=== PATIENT | male | born 1945 | race Caucasian/White ===

== ENCOUNTER 2020-05-06 12:32 | Observation (INO) | payer MEDICARE, OTHER ==
[~2020-05-06 12:32] MED LIST: Lactated Ringers 1,000 ML IV SCH; Sodium Chloride 0.9% 10 ML SDV IV PRN; Sodium Chloride 0.9% 10 ML Syringe FLUSH PRN; Sodium Chloride 0.9% 2.5 ML Syringe FLUSH PRN; ceFAZolin 2 GM in Premix Bag 1 BAG IV ONE
[2020-05-06] MEDS ORDERED: Albuterol/Ipratropium 3.0-0.5 MG/3 ML Neb Soln NEB ONE (12:53)
--- NOTE | 2020-05-06 12:53 | PCM.PREANE ---
Preanesthetic Assessment - Anesthesia/Transfusion/Family Hx Anesthesia History: No Prior Anesthesia Family History of Anesthesia Reaction: No Transfusion History: No Prior Transfusion(s) Intubation History: Unknown - Review of Systems General: No Symptoms Pulmonary: No Symptoms, Wheezing Cardiovascular: No Symptoms Gastrointestinal: No Symptoms Neurological: No Symptoms Other: Reports: None - Physical Assessment Height: 5 ft 11 in Weight: 117.934 kg ASA Class: 3 Mental Status: Alert & Oriented x3 Airway Class: Mallampati = 2 Dentition: Reports: Dentures (upper) Thyro-Mental Finger Breadths: 3 Mouth Opening Finger Breadths: 3 ROM/Head Extension: Limited/Partial Lungs: Normal Respiratory Effort, Wheezing Cardiovascular: Regular Rate, Regular Rhythm - Lab Values: Laboratory Last Values SARS-CoV-2 RNA (AMY) NEGATIVE (NEGATIVE) 05/06/20 10:30 - Allergies Allergies/Adverse Reactions: Allergies Allergy/AdvReac Type Severity Reaction Status Date / Time No Known Allergies Allergy Verified 05/06/20 08:11 - Blood Blood Available: No - Anesthesia Plan Pre-Op Medication Ordered: None - Acknowledgements Anesthesia Type Planned: General Anesthesia Pt an Appropriate Candidate for the Planned Anesthesia: Yes Alternatives and Risks of Anesthesia Discussed w Pt/Guardian: Yes Pt/Guardian Understands and Agrees with Anesthesia Plan: Yes PreAnesthesia Questionnaire HEENT History: Reports: Other (See Below) Other HEENT History: wears glasses, top denture Cardiovascular History: Reports: Aneurysm, High Cholesterol, Hypertension Other Cardiovascular History: AAA, gets checked every 6 months, last time 6 months ago 4.2 cm Respiratory History: Reports: 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 He can walk 2 flights of stairs or two blocks with some SOB) Gastrointestinal History: Reports: None Genitourinary History: Reports: BPH, Renal Calculus Other Genitourinary History: presently has kidney stone Musculoskeletal History: Reports: Arthritis Neurological History: Reports: None Psychiatric History: Reports: None Endocrine/Metabolic History: Reports: Obesity/BMI 30+ (BMI 36.3) Hematologic History: Reports: None Immunologic History: Reports: None Oncologic (Cancer) History: Reports: None Dermatologic History: Reports: None - Past Surgical History Head Surgeries/Procedures: Reports: None HEENT Surgical History: Reports: Cataract Surgery Cardiovascular Surgical History: Reports: None Respiratory Surgical History: Reports: None GI Surgical History: Reports: None Male Surgical History: Reports: None Endocrine Surgical History: Reports: None Neurological Surgical History: Reports: None Musculoskeletal Surgical History: Reports: None Oncologic Surgical History: Reports: None Dermatological Surgical History: Reports: Skin Biopsy - SUBSTANCE USE Tobacco Use Status *Q: Current Every Day Tobacco User (1 ppd) Tobacco Use Within Last Twelve Months: Cigarettes Recreational Drug Use History: No - HOME MEDS Home Medications: Home Meds Albuterol Sulfate [Albuterol Sulfate HFA] 2 puff INH Q4H PRN 05/06/20 [History] Fluticasone Propion/Salmeterol [Advair 250-50 Diskus] 1 inhalation INH BID 05/06/20 [History] Tiotropium [Spiriva HandiHaler] 1 cap INH DAILY 05/06/20 [History] atorvaSTATin Calcium [Atorvastatin Calcium] 20 mg PO DAILY 05/06/20 [History] lisinopriL [Lisinopril] 10 mg PO DAILY 05/06/20 [History] - CURRENT (IN HOUSE) MEDS Current Meds: Current Medications Lactated Ringer's (Ringers, Lactated) 1,000 mls @ 100 mls/hr IV ASDIRECTED KJ Sodium Chloride (Saline Flush) 10 ml FLUSH ASDIRECTED PRN PRN Reason: Keep Vein Open Sodium Chloride (Saline Flush) 2.5 ml FLUSH ASDIRECTED PRN PRN Reason: Keep Vein Open Sodium Chloride (Normal Saline) 10 ml IV ASDIRECTED PRN PRN Reason: IV Use Discontinued Medications Cefazolin Sodium/Dextrose 2 gm (/ Premix) 50 mls @ 100 mls/hr IV ONCALL ONE Stop: 05/06/20 09:10
[2020-05-06] MEDS ORDERED: Albuterol/Ipratropium 3.0-0.5 MG/3 ML Neb Soln ONE (13:00)
[2020-05-06] MEDS ORDERED: fentaNYL 100 MCG/2 ML SDV ONE ×2 (13:45→14:18)
[2020-05-06] MEDS ORDERED: Propofol 200 MG/20 ML SDV ONE ×4 (13:45→14:35)
[2020-05-06] MEDS ORDERED: Midazolam 1 MG/ML 2 ML SDV ONE (13:46)
[2020-05-06] MEDS ORDERED: Ondansetron 4 MG/2 ML SDV ONE (13:46)
[2020-05-06] MEDS ORDERED: Iopamidol 408 MG/ML 20 ML SDV ONE (13:48)
[2020-05-06] MEDS ORDERED: Sodium Chloride 0.9% 20 ML ONE (13:55)
[2020-05-06] MEDS ORDERED: ceFAZolin 1 GM Vial ONE (13:55)
[2020-05-06] MEDS ORDERED: Glycopyrrolate 0.2 MG/ML SDV ONE (14:16)
[2020-05-06] MEDS ORDERED: Ketorolac 30 MG/ML SDV ONE (14:52)
[2020-05-06] MEDS ORDERED: Albuterol 8 GM Inhaler INH PRN (15:10)
--- NOTE | 2020-05-06 16:00 | PCM.POSTAN ---
POST ANESTHESIA ASSESSMENT - MENTAL STATUS Mental Status: Alert - VITAL SIGNS Vital Signs: Last Vital Signs Temp 36.9 C 05/06/20 15:03 Pulse 92 05/06/20 15:29 Resp 21 H 05/06/20 15:29 BP 135/66 05/06/20 15:29 Pulse Ox 92 L 05/06/20 15:29 - RESPIRATORY Respiratory Status: Respiratory Rate WNL - CARDIOVASCULAR CV Status: Pulse Rate WNL - GASTROINTESTINAL GI Status: No Symptoms - POST OP HYDRATION Hydration Status: Adequate & Stable
--- NOTE | 2020-05-06 16:05 | OR ---
SURGEON: Serina Singh M.D. DATE OF PROCEDURE: 05/06/2020 PREOPERATIVE DIAGNOSIS: A 7 to 8 mm left upper ureteral stone. POSTOPERATIVE DIAGNOSIS: A 7 to 8 mm left upper ureteral stone. OPERATION: Cystoscopy; attempted double-J stent placement, unsuccessful. DESCRIPTION OF PROCEDURE: The patient was given adequate sedation. He was placed in dorsal lithotomy position, prepped and draped in sterile drapes. The urethral meatus had to be dilated to allow the 25-Bulgarian scope in, however, that met resistance and was replaced by the 22-Bulgarian. I was able to get into the bladder, but it appeared that a small false passage was created in the distal penile urethra. However, that was avoided, and I am now in the bladder. There was a prominent median lobe and could not use the cystoscope to get the guidewire in. So I ended up having to replace that with a rigid ureteroscope through which I was able to initially try the regular guidewire, which would not go up beyond the first 2 inches. So I put the Glidewire in and that went all the way up into the renal pelvis. An attempt was made to put the stent over the Glidewire without having cystoscope in, but that went in the left lower ureter and just stopped. Anymore push would result in having the Glidewire come back, so that unfortunately did not work. So the double-J stent was pulled out. The Glidewire was still in place, attempted putting a 22 cystoscope sheath over that, that also met resistance because of enlarged prostate, and in order to avoid further damage to the urethra, I stopped and put a 20-Bulgarian Reilly catheter in, which went in easy. The urine coming back was clear. There was some urethral bleeding, but that was stopped, and we would have to manage his pain until we can do the lithotripsy, the shock wave lithotripsy that is, since the stone is clearly visible on the fluoro. With that done, the procedure was terminated. The patient was moved to recovery room in stable condition. He will be sent home and will be instructed to leave the catheter in for the next 2 days. Actually, we will take it out Saturday morning, and I will see him again this coming for ESWL. He will be sent home on antibiotics and Flomax and pain medicine. JULIOCESAR / URMILA /[id number]
--- NOTE | 2020-05-06 19:15 | PCM.HP.2 ---
<Kemar Man M - Last Filed: 05/06/20 20:48> H&P History of Present Illness - General Date of Service: 05/06/20 Admit Problem/Dx: Admission Diagnosis/Problem Admission Diagnosis/Problem Kidney stone Source of Information: Patient History Limitations: Reports: No Limitations - History of Present Illness Initial Comments - Free Text/Narative: 74-year-old male admitted to med/surg after having urological procedure done earlier today. Patient has a PMH of COPD, HTN, HLD, BPH and renal calculus. Patient was taken to the OR to have cystoscopy and stent placement for left ureter partial stone obstruction. Per urologist, stent could not be placed. After the procedure, patient was unable to be weaned off of oxygen. He was then admitted to the general medical floor for further evaluation and treatment. Patient does not use any home oxygen at baseline. He is a current smoker of 1 ppd. At bedside today, patient denied having any pain, fevers, chills, sore throat, cough, chest pain, nausea, vomiting, abdominal pain, diarrhea, blood in stool, blood in urine, numbness or tingling in extremities. penis Pain Score (Numeric/FACES): 5 - Related Data Allergies/Adverse Reactions: Allergies Allergy/AdvReac Type Severity Reaction Status Date / Time No Known Allergies Allergy Verified 05/06/20 13:11 Home Medications: Home Meds Albuterol Sulfate [Albuterol Sulfate HFA] 2 puff INH Q4H PRN 05/06/20 [History] Fluticasone Propion/Salmeterol [Advair 250-50 Diskus] 1 inhalation INH BID 05/06/20 [History] Tiotropium [Spiriva HandiHaler] 1 cap INH DAILY 05/06/20 [History] atorvaSTATin Calcium [Atorvastatin Calcium] 20 mg PO DAILY 05/06/20 [History] lisinopriL [Lisinopril] 10 mg PO DAILY 05/06/20 [History] Past Medical History HEENT History: Reports: Other (See Below) Other HEENT History: wears glasses, top denture Cardiovascular History: Reports: Aneurysm, High Cholesterol, Hypertension Other Cardiovascular History: AAA, gets checked every 6 months, last time 6 months ago 4.2 cm Respiratory History: Reports: COPD Gastrointestinal History: Reports: None Genitourinary History: Reports: BPH, Renal Calculus Other Genitourinary History: presently has kidney stone Musculoskeletal History: Reports: Arthritis Neurological History: Reports: None Psychiatric History: Reports: None Endocrine/Metabolic History: Reports: Obesity/BMI 30+ Hematologic History: Reports: None Immunologic History: Reports: None Oncologic (Cancer) History: Reports: None Dermatologic History: Reports: None - Past Surgical History Head Surgeries/Procedures: Reports: None HEENT Surgical History: Reports: Cataract Surgery, Tonsillectomy Cardiovascular Surgical History: Reports: None Respiratory Surgical History: Reports: None GI Surgical History: Reports: None Male Surgical History: Reports: None Endocrine Surgical History: Reports: None Neurological Surgical History: Reports: None Musculoskeletal Surgical History: Reports: None Oncologic Surgical History: Reports: None Dermatological Surgical History: Reports: Skin Biopsy Social & Family History - Family History Family Medical History: No Pertinent Family History - Tobacco Use Tobacco Use Status *Q: Current Every Day Tobacco User Years of Tobacco use: 55 Packs/Tins Daily: 1 - Caffeine Use Caffeine Use: Reports: Coffee - Recreational Drug Use Recreational Drug Use: No Drug Use in Last 12 Months: No H&P Review of Systems - Review of Systems: Review Of Systems: Comprehensive ROS is negative, except as noted in HPI. Exam - Exam Exam: See Below - Vital Signs Vital Signs: Last Vital Signs Temp 37.1 C 05/06/20 17:15 Pulse 92 05/06/20 17:15 Resp 18 05/06/20 17:15 BP 151/71 H 05/06/20 17:15 Pulse Ox 96 05/06/20 17:15 Weight: 128.684 kg - Exam General: Alert, Oriented, Cooperative, Other (NAD) HEENT: Conjunctiva Clear, EOMI, Hearing Intact, Pupils Equal, Pupils Reactive Neck: Supple, Trachea Midline Lungs: Normal Respiratory Effort, Other (mild wheezes in RLL.) Cardiovascular: Regular Rate, Regular Rhythm GI/Abdominal Exam: Normal Bowel Sounds, Soft, Non-Tender, No Distention Extremities: Normal Inspection, No Pedal Edema Peripheral Pulses: 2+: Radial (L), Radial (R) Skin: Warm, Dry, Intact Neurological: Cranial Nerves Intact, Strength Equal Bilateral, Normal Speech, Normal Tone Neuro Extensive - Mental Status: Alert, Oriented x3, Normal Mood/Affect Psychiatric: Alert, Normal Affect, Normal Mood - Patient Data Lab Results Last 24 hrs: Laboratory Results - last 24 hr 05/06/20 Range/Units 10:30 SARS-CoV-2 RNA (AMY) NEGATIVE (NEGATIVE) Sepsis Event Note - Evaluation Sepsis Screening Result: No Definite Risk - Focused Exam Vital Signs: Vital Signs Temp Pulse Resp BP Pulse Ox 05/06/20 17:15 37.1 C 92 18 151/71 H 96 05/06/20 16:30 91 20 140/63 93 L 05/06/20 16:10 100 20 81 L 05/06/20 15:50 90 18 144/85 H 90 L 05/06/20 15:35 36.4 C 18 141/65 H 89 L 05/06/20 15:29 92 21 H 135/66 92 L 05/06/20 15:25 97 1 L 134/72 93 L 05/06/20 15:20 97 18 127/64 89 L 05/06/20 15:15 95 17 109/49 L 96 05/06/20 15:09 100 16 140/75 96 05/06/20 15:03 36.9 C 102 H 13 137/58 L 98 05/06/20 13:13 36.7 C 74 18 158/69 H 95 Problem List Initiated/Reviewed/Updated: Yes Orders Last 24hrs: Active Orders 24 hr Category Date Time Status Admission Status [Patient Status] [ADT] Routine ADT 05/06/20 17:11 Active Patient Status [ADT] Routine ADT 05/06/20 08:42 Active Peripheral IV Care [RC] . DIRECTED Care 05/06/20 08:46 Active RT Aerosol Therapy [RC] ASDIRECTED Care 05/06/20 12:54 Active RT Post Treatment Assessment [RC] Click to Edit Care 05/06/20 15:10 Active RT Pre-Treatment Assessment [RC] Click to Edit Care 05/06/20 15:10 Active Ready for Discharge [RC] PER UNIT ROUTINE Care 05/06/20 15:12 Active Up ad Zora [RC] ASDIRECTED Care 05/06/20 08:46 Active Clear Liquid Diet [DIET] Diet 05/06/20 Lunch Active Fluoro Up To 1Hr [CR] Routine Exams 05/06/20 14:49 Taken Albuterol [Ventolin HFA] Med 05/06/20 15:10 Active 0 gm INH Q4H PRN Fluticasone/Salmeterol [Advair Diskus 250-50] Med 05/06/20 21:00 Active 1 puff INH BID Lactated Ringers [Ringers, Lactated] 1,000 ml Med 05/06/20 08:45 Active IV ASDIRECTED Sodium Chloride 0.9% [Normal Saline] Med 05/06/20 08:41 Active 10 ml IV ASDIRECTED PRN Sodium Chloride 0.9% [Saline Flush] Med 05/06/20 08:41 Active 10 ml FLUSH ASDIRECTED PRN Sodium Chloride 0.9% [Saline Flush] Med 05/06/20 08:41 Active 2.5 ml FLUSH ASDIRECTED PRN Tiotropium [Spiriva HandiHaler] Med 05/07/20 09:00 Active 18 mcg INH DAILY atorvaSTATin [Lipitor] Med 05/06/20 21:00 Active 20 mg PO BEDTIME lisinopriL [Prinivil] Med 05/07/20 09:00 Active 10 mg PO DAILY Peripheral IV Insertion Adult [OM.PC] Routine Oth 05/06/20 08:46 Ordered Resuscitation Status Routine Resus Stat 05/06/20 08:41 Ordered Medication Orders Albuterol (Ventolin Hfa) 0 gm INH Q4H PRN PRN Reason: Wheezing Atorvastatin Calcium (Lipitor) 20 mg PO BEDTIME KJ Lactated Ringer's (Ringers, Lactated) 1,000 mls @ 100 mls/hr IV ASDIRECTED KJ Last Admin: 05/06/20 13:11 Dose: 100 mls/hr Documented by: FENSGLO Lisinopril (Prinivil) 10 mg PO DAILY KJ Fluticasone/Salmeterol (Advair Diskus 250-50) 1 puff INH BID KJ Sodium Chloride (Saline Flush) 10 ml FLUSH ASDIRECTED PRN PRN Reason: Keep Vein Open Sodium Chloride (Saline Flush) 2.5 ml FLUSH ASDIRECTED PRN PRN Reason: Keep Vein Open Sodium Chloride (Normal Saline) 10 ml IV ASDIRECTED PRN PRN Reason: IV Use Tiotropium [place] (Spiriva Handihaler) 18 mcg INH DAILY KJ Assessment/Plan Comment:: Assessment and Plan: 1. Acute hypoxic respiratory failure post-operatively: - Admit to med/surg. Supplemental oxygen prn, Duonebs q4 KJ and IV solumedrol 40 mg BID. Encourage incentive spirometer use. Patient currently on 2 L NC. Will order CBC, CMP and CXR. 2. Left ureter partial stone obstruction: - Patient was taken to the OR today by urology but stent could not be placed. Per urology, planning for lithotripsy next week. 3. Past medical history of COPD, HTN, HLD and BPH: - Continue home medications. 4. DVT prophylaxis: - SCD's. 5. GI prophylaxis: - Pantoprazole 40 mg qd. <Joanna Thomas - Last Filed: 05/07/20 13:50> H&P History of Present Illness - General Admit Problem/Dx: Admission Diagnosis/Problem Admission Diagnosis/Problem Hypoxia - History of Present Illness Initial Comments - Free Text/Narative: I performed a history and physical exam of the patient and discussed management with resident. I have reviewed the residents note and agree with documented findings and plan unless otherwise specified in my note. Exam - Vital Signs Vital Signs: Last Vital Signs Temp 36.9 C 05/07/20 09:37 Pulse 87 05/07/20 09:37 Resp 16 05/07/20 09:37 BP 121/52 L 05/07/20 09:37 Pulse Ox 93 L 05/07/20 09:37 - Patient Data Lab Results Last 24 hrs: Laboratory Results - last 24 hr 05/06/20 05/06/20 05/07/20 Range/Units 22:19 22:19 06:35 WBC 11.45 H (4.0-11.0) K/uL RBC 3.91 L (4.50-5.90) M/uL Hgb 11.9 L (13.0-17.0) g/dL Hct 35.6 L (38.0-50.0) % MCV 91.0 (80.0-98.0) fL MCH 30.4 (27.0-32.0) pg MCHC 33.4 (31.0-37.0) g/dL RDW Std Deviation 45.6 (28.0-62.0) fl RDW Coeff of Wilfredo 14 (11.0-15.0) % Plt Count 244 (150-400) K/uL MPV 9.80 (7.40-12.00) fL Neut % (Auto) 82.8 H (48.0-80.0) % Lymph % (Auto) 11.0 L (16.0-40.0) % [place] % (Auto) 5.9 (0.0-15.0) % Eos % (Auto) 0.3 (0.0-7.0) % Baso % (Auto) 0.0 (0.0-1.5) % Neut # (Auto) 9.5 H (1.4-5.7) K/uL Lymph # (Auto) 1.3 (0.6-2.4) K/uL [place] # (Auto) 0.7 (0.0-0.8) K/uL Eos # (Auto) 0.0 (0.0-0.7) K/uL Baso # (Auto) 0.0 (0.0-0.1) K/uL Nucleated RBC % 0.0 /100WBC Nucleated RBCs # 0 K/uL Sodium 137 138 (136-148) mmol/L Potassium 4.2 4.4 (3.5-5.1) mmol/L Chloride 103 106 (98-107) mmol/L Carbon Dioxide 23.4 22.6 (21.0-32.0) mmol/L BUN 17 13 (7.0-18.0) mg/dL Creatinine 1.4 H 1.2 (0.8-1.3) mg/dL Est Cr Clr Drug Dosing 47.81 55.78 mL/min Estimated GFR (MDRD) 49.3 58.9 ml/min Glucose 128 H 162 H (74-106) mg/dL Calcium 8.1 L 8.3 L (8.5-10.1) mg/dL Phosphorus 3.6 (2.6-4.7) mg/dL Magnesium 1.8 (1.8-2.4) mg/dL 05/07/20 Range/Units 06:35 WBC 12.73 H (4.0-11.0) K/uL RBC 3.82 L (4.50-5.90) M/uL Hgb 11.7 L (13.0-17.0) g/dL Hct 34.5 L (38.0-50.0) % MCV 90.3 (80.0-98.0) fL MCH 30.6 (27.0-32.0) pg MCHC 33.9 (31.0-37.0) g/dL RDW Std Deviation 44.0 (28.0-62.0) fl RDW Coeff of Wilfredo 13 (11.0-15.0) % Plt Count 248 (150-400) K/uL MPV 9.80 (7.40-12.00) fL Neut % (Auto) 91.1 H (48.0-80.0) % Lymph % (Auto) 4.6 L (16.0-40.0) % [place] % (Auto) 4.2 (0.0-15.0) % Eos % (Auto) 0.0 (0.0-7.0) % Baso % (Auto) 0.1 (0.0-1.5) % Neut # (Auto) 11.6 H (1.4-5.7) K/uL Lymph # (Auto) 0.6 (0.6-2.4) K/uL [place] # (Auto) 0.5 (0.0-0.8) K/uL Eos # (Auto) 0.0 (0.0-0.7) K/uL Baso # (Auto) 0.0 (0.0-0.1) K/uL Nucleated RBC % 0.0 /100WBC Nucleated RBCs # 0 K/uL Sodium (136-148) mmol/L Potassium (3.5-5.1) mmol/L Chloride (98-107) mmol/L Carbon Dioxide (21.0-32.0) mmol/L BUN (7.0-18.0) mg/dL Creatinine (0.8-1.3) mg/dL Est Cr Clr Drug Dosing mL/min Estimated GFR (MDRD) ml/min Glucose (74-106) mg/dL Calcium (8.5-10.1) mg/dL Phosphorus (2.6-4.7) mg/dL Magnesium (1.8-2.4) mg/dL Result Diagrams: 05/07/20 06:35 05/07/20 06:35 Sepsis Event Note - Focused Exam Vital Signs: Vital Signs Temp Pulse Resp BP BP Pulse Ox Pulse Ox 05/07/20 09:37 36.9 C 87 16 121/52 L 93 L 05/07/20 08:28 131/62 05/07/20 04:00 36.8 C 84 16 134/59 L 90 L 05/07/20 03:19 96 Orders Last 24hrs: Active Orders 24 hr Category Date Time Status Admission Status [Patient Status] [ADT] Routine ADT 05/06/20 19:45 Active Ambulate [RC] ASDIRECTED Care 05/06/20 19:47 Active Antiembolic Devices [RC] PER UNIT ROUTINE Care 05/06/20 19:48 Active IS (RT) [RT Incentive Spirometry] [RC] Q2HWA Care 05/06/20 22:10 Active Oxygen Therapy [RC] PRN Care 05/06/20 19:43 Active Oxygen Therapy [RC] PRN Care 05/06/20 19:47 Active RT Aerosol Therapy [RC] ASDIRECTED Care 05/06/20 12:54 Active RT Aerosol Therapy [RC] ASDIRECTED Care 05/06/20 19:49 Active RT Aerosol Therapy [RC] ASDIRECTED Care 05/06/20 19:54 Active RT Incentive Spirometry [RC] ASDIRECTED Care 05/06/20 20:10 Active RT Post Treatment Assessment [RC] Click to Edit Care 05/06/20 15:10 Active RT Pre-Treatment Assessment [RC] Click to Edit Care 05/06/20 15:10 Active Ready for Discharge [RC] PER UNIT ROUTINE Care 05/06/20 15:12 Active VTE/DVT Education [RC] PER UNIT ROUTINE Care 05/06/20 19:43 Active VTE/DVT Education [RC] PER UNIT ROUTINE Care 05/06/20 19:47 Active Vital Signs [RC] Q4H Care 05/06/20 19:43 Active Vital Signs [RC] Q4H Care 05/06/20 19:47 Active Heart Healthy Diet [DIET] Diet 05/06/20 Dinner Active Fluoro Up To 1Hr [CR] Routine Exams 05/06/20 14:49 Taken BASIC METABOLIC PANEL,BMP [CHEM] AM Lab 05/08/20 05:11 Ordered CBC WITH AUTO DIFF [HEME] AM Lab 05/08/20 05:11 Ordered Acetaminophen [TylenoL] Med 05/06/20 19:47 Active 650 mg PO Q4H PRN Albuterol/Ipratropium [DuoNeb 3.0-0.5 MG/3 ML] Med 05/06/20 22:00 Active 3 ml NEB Q4HRRT Albuterol/Ipratropium [DuoNeb 3.0-0.5 MG/3 ML] Med 05/06/20 19:53 Active 3 ml NEB Q4HRRT PRN Docusate Sodium [Colace] Med 05/07/20 13:30 Active 100 mg PO BID Fluticasone/Salmeterol [Advair Diskus 250-50] Med 05/06/20 21:00 Active 1 puff INH BID Lactated Ringers [Ringers, Lactated] 1,000 ml Med 05/06/20 20:00 Active IV ASDIRECTED Levofloxacin/Dextrose 5%-Water [Levaquin in D5W 750 MG/ Med 05/06/20 23:30 Active 150 ML] 750 mg Premix Bag 1 bag IV Q48H Morphine Med 05/06/20 19:47 Active 2 mg IVPUSH Q4H PRN Ondansetron [Zofran] Med 05/06/20 19:47 Active 4 mg IVPUSH Q4H PRN Pantoprazole [ProTONIX] Med 05/07/20 09:00 Active 40 mg PO DAILY Tiotropium [Spiriva HandiHaler] Med 05/07/20 09:00 Active 18 mcg INH DAILY atorvaSTATin [Lipitor] Med 05/06/20 21:00 Active 20 mg PO BEDTIME lisinopriL [Prinivil] Med 05/07/20 09:00 Active 10 mg PO DAILY methylPREDNISolone Sod Succ [Solu-MEDROL] Med 05/06/20 20:00 Active 40 mg IVPUSH Q12H Sequential Compression Device [OM.PC] Per Unit Routine Oth 05/06/20 19:47 Ordered Medication Orders Acetaminophen (Tylenol) 650 mg PO Q4H PRN PRN Reason: Pain (Mild 1-3)/fever Albuterol/Ipratropium (Duoneb 3.0-0.5 Mg/3 Ml) 3 ml NEB Q4HRRT PRN PRN Reason: Shortness of Breath Albuterol/Ipratropium (Duoneb 3.0-0.5 Mg/3 Ml) 3 ml NEB Q4HRRT KJ Last Admin: 05/07/20 13:38 Dose: 3 ml Documented by: Admin: 05/07/20 10:41 Dose: 3 ml Documented by: Admin: 05/07/20 06:42 Dose: 3 ml Documented by: Admin: 05/07/20 03:17 Dose: 3 ml Documented by: Admin: 05/06/20 23:03 Dose: 3 ml Documented by: YVETTE Atorvastatin Calcium (Lipitor) 20 mg PO BEDTIME [facility] Last Admin: 05/06/20 21:14 Dose: 20 mg Documented by: YVETTE Docusate Sodium (Colace) 100 mg PO BID [facility] Lactated Ringer's (Ringers, Lactated) 1,000 mls @ 125 mls/hr IV ASDIRECTED [facility] Last Admin: 05/06/20 21:18 Dose: 125 mls/hr Documented by: YVETTE Levofloxacin/Dextrose 750 mg/ (Premix) 150 mls @ 100 mls/hr IV Q48H [facility] Last Admin: 05/06/20 23:56 Dose: 100 mls/hr Documented by: YVETTE Lisinopril (Prinivil) 10 mg PO DAILY [facility] Last Admin: 05/07/20 08:28 Dose: 10 mg Documented by: SU Methylprednisolone Sodium Succinate (Solu-Medrol) 40 mg IVPUSH Q12H [facility] Last Admin: 05/07/20 08:28 Dose: 40 mg Documented by: Admin: 05/06/20 21:11 Dose: 40 mg Documented by: YVETTE Morphine Sulfate (Morphine) 2 mg IVPUSH Q4H PRN PRN Reason: Pain (severe 7-10) Stop: 05/07/20 19:48 Ondansetron HCl (Zofran) 4 mg IVPUSH Q4H PRN PRN Reason: Nausea/Vomiting Pantoprazole Sodium (Protonix) 40 mg PO DAILY [facility] Last Admin: 05/07/20 08:28 Dose: 40 mg Documented by: SU Fluticasone/Salmeterol (Advair Diskus 250-50) 1 puff INH BID [facility] Last Admin: 05/07/20 10:16 Dose: 1 puff Documented by: Admin: 05/06/20 21:15 Dose: 1 puff Documented by: YVETTE Sodium Chloride (Saline Flush) 10 ml FLUSH ASDIRECTED PRN PRN Reason: Keep Vein Open Sodium Chloride (Saline Flush) 2.5 ml FLUSH ASDIRECTED PRN PRN Reason: Keep Vein Open Sodium Chloride (Normal Saline) 10 ml IV ASDIRECTED PRN PRN Reason: IV Use Tiotropium [place] (Spiriva Handihaler) 18 mcg INH DAILY KJ Last Admin: 05/07/20 10:17 Dose: Not Given Documented by: SU
[2020-05-06] MEDS ORDERED: Ondansetron 4 MG/2 ML SDV IVPUSH PRN (19:47)
[2020-05-06] MEDS ORDERED: Morphine 2 MG/ML SYRINGE IVPUSH PRN (19:47)
[2020-05-06] MEDS ORDERED: Albuterol/Ipratropium 3.0-0.5 MG/3 ML Neb Soln NEB PRN ×2 (19:47→19:53)
[2020-05-06] MEDS ORDERED: Acetaminophen 325 MG Tab PO PRN (19:47)
[2020-05-06] MEDS: methylPREDNISolone Sodium Succinate 40 MG/1 ML SDV IVPUSH SCH (21:11)
[2020-05-06] MEDS: atorvaSTATin 20 MG Tab PO SCH (21:14)
[2020-05-06] MEDS: Fluticasone/Salmeterol 250-50 MCG Inhalation Powder 14/Diskus INH SCH (21:15)
[2020-05-06] MEDS: Lactated Ringers 1,000 ML IV SCH (21:18)
--- NOTE | 2020-05-06 21:48 | CR ---
Indication: Hypoxia Technique: Chest 1 view Comparison: None Findings/Impression: Cardiovascular and mediastinum: Heart size and vasculature are normal in caliber and appearance. Mediastinum is within normal limits. Lungs and pleural space: Minimal atelectasis versus infiltrate at the right lung base. No sign of pleural effusion. No pneumothorax. Bones and soft tissues: No significant findings. Dictated by Mallorie Barrera MD @ May 06 2020 9:47PM Signed by Dr. Mallorie Barrera @ May 06 2020 9:47PM
[2020-05-06] MEDS ORDERED: Levofloxacin/Dextrose 5%-Water 750 MG in Premix Bag 1 BAG IV SCH (22:15)
[2020-05-06 22:49] LABS: CARBON DIOXIDE,CO2 23.4 mmol/L (21.0-32.0); POTASSIUM,K 4.2 mmol/L (3.5-5.1)
[2020-05-06] MEDS: Albuterol/Ipratropium 3.0-0.5 MG/3 ML Neb Soln NEB SCH (23:03)
[2020-05-06] MEDS: Levofloxacin/Dextrose 5%-Water 750 MG in Premix Bag 1 BAG IV SCH (23:56)
[2020-05-07] MEDS: Albuterol/Ipratropium 3.0-0.5 MG/3 ML Neb Soln NEB SCH ×6 (03:17→23:58)
--- NOTE | 2020-05-07 07:27 | PCM48HPAN ---
Post Anesthesia Note - EVALUATION WITHIN 48HRS OF ANESTHETIC Vital Signs in Normal Range: Yes Patient Participated in Evaluation: Yes Respiratory Function Stable: Yes Airway Patent: Yes Cardiovascular Function Stable: Yes Hydration Status Stable: Yes Pain Control Satisfactory: Yes Nausea and Vomiting Control Satisfactory: Yes Mental Status Recovered: Yes Vital Signs: Last Vital Signs Temp 36.8 C 05/07/20 04:00 Pulse 84 05/07/20 04:00 Resp 16 05/07/20 04:00 BP 134/59 L 05/07/20 04:00 Pulse Ox 90 L 05/07/20 04:00
[2020-05-07 07:41] LABS: CARBON DIOXIDE,CO2 22.6 mmol/L (21.0-32.0); POTASSIUM,K 4.4 mmol/L (3.5-5.1)
[2020-05-07] MEDS: Lisinopril 10 MG Tab PO SCH (08:28)
[2020-05-07] MEDS: Pantoprazole 40 MG Tab.CR PO SCH (08:28)
[2020-05-07] MEDS: methylPREDNISolone Sodium Succinate 40 MG/1 ML SDV IVPUSH SCH ×2 (08:28→23:59)
--- NOTE | 2020-05-07 08:49 | PCM.PN ---
<Kemar Man M - Last Filed: 05/07/20 13:27> - General Info Date of Service: 05/07/20 Subjective Update: Patient reports breathing feels a bit better. Denies having much of a cough. No fevers, chills, chest pain, nausea or vomiting overnight. - Patient Data Vitals - Most Recent: Last Vital Signs Temp 36.8 C 05/07/20 04:00 Pulse 84 05/07/20 04:00 Resp 16 05/07/20 04:00 BP 131/62 05/07/20 08:28 Pulse Ox 90 L 05/07/20 04:00 Weight - Most Recent: 128.684 kg I&O - Last 24 Hours: Intake & Output 05/06/20 05/07/20 05/07/20 22:59 06:59 14:59 Intake Total 950 1785 Output Total 30 1050 Balance 920 735 Lab Results Last 24 Hours: Laboratory Results - last 24 hr 05/06/20 05/06/20 05/06/20 Range/Units 10:30 22:19 22:19 WBC 11.45 H (4.0-11.0) K/uL RBC 3.91 L (4.50-5.90) M/uL Hgb 11.9 L (13.0-17.0) g/dL Hct 35.6 L (38.0-50.0) % MCV 91.0 (80.0-98.0) fL MCH 30.4 (27.0-32.0) pg MCHC 33.4 (31.0-37.0) g/dL RDW Std Deviation 45.6 (28.0-62.0) fl RDW Coeff of Wilfredo 14 (11.0-15.0) % Plt Count 244 (150-400) K/uL MPV 9.80 (7.40-12.00) fL Neut % (Auto) 82.8 H (48.0-80.0) % Lymph % (Auto) 11.0 L (16.0-40.0) % [place] % (Auto) 5.9 (0.0-15.0) % Eos % (Auto) 0.3 (0.0-7.0) % Baso % (Auto) 0.0 (0.0-1.5) % Neut # (Auto) 9.5 H (1.4-5.7) K/uL Lymph # (Auto) 1.3 (0.6-2.4) K/uL [place] # (Auto) 0.7 (0.0-0.8) K/uL Eos # (Auto) 0.0 (0.0-0.7) K/uL Baso # (Auto) 0.0 (0.0-0.1) K/uL Nucleated RBC % 0.0 /100WBC Nucleated RBCs # 0 K/uL Sodium 137 (136-148) mmol/L Potassium 4.2 (3.5-5.1) mmol/L Chloride 103 (98-107) mmol/L Carbon Dioxide 23.4 (21.0-32.0) mmol/L BUN 17 (7.0-18.0) mg/dL Creatinine 1.4 H (0.8-1.3) mg/dL Est Cr Clr Drug Dosing 47.81 mL/min Estimated GFR (MDRD) 49.3 ml/min Glucose 128 H (74-106) mg/dL Calcium 8.1 L (8.5-10.1) mg/dL Phosphorus (2.6-4.7) mg/dL Magnesium (1.8-2.4) mg/dL SARS-CoV-2 RNA (AMY) NEGATIVE (NEGATIVE) 05/07/20 05/07/20 Range/Units 06:35 06:35 WBC 12.73 H (4.0-11.0) K/uL RBC 3.82 L (4.50-5.90) M/uL Hgb 11.7 L (13.0-17.0) g/dL Hct 34.5 L (38.0-50.0) % MCV 90.3 (80.0-98.0) fL MCH 30.6 (27.0-32.0) pg MCHC 33.9 (31.0-37.0) g/dL RDW Std Deviation 44.0 (28.0-62.0) fl RDW Coeff of Wilfredo 13 (11.0-15.0) % Plt Count 248 (150-400) K/uL MPV 9.80 (7.40-12.00) fL Neut % (Auto) 91.1 H (48.0-80.0) % Lymph % (Auto) 4.6 L (16.0-40.0) % [place] % (Auto) 4.2 (0.0-15.0) % Eos % (Auto) 0.0 (0.0-7.0) % Baso % (Auto) 0.1 (0.0-1.5) % Neut # (Auto) 11.6 H (1.4-5.7) K/uL Lymph # (Auto) 0.6 (0.6-2.4) K/uL [place] # (Auto) 0.5 (0.0-0.8) K/uL Eos # (Auto) 0.0 (0.0-0.7) K/uL Baso # (Auto) 0.0 (0.0-0.1) K/uL Nucleated RBC % 0.0 /100WBC Nucleated RBCs # 0 K/uL Sodium 138 (136-148) mmol/L Potassium 4.4 (3.5-5.1) mmol/L Chloride 106 (98-107) mmol/L Carbon Dioxide 22.6 (21.0-32.0) mmol/L BUN 13 (7.0-18.0) mg/dL Creatinine 1.2 (0.8-1.3) mg/dL Est Cr Clr Drug Dosing 55.78 mL/min Estimated GFR (MDRD) 58.9 ml/min Glucose 162 H (74-106) mg/dL Calcium 8.3 L (8.5-10.1) mg/dL Phosphorus 3.6 (2.6-4.7) mg/dL Magnesium 1.8 (1.8-2.4) mg/dL SARS-CoV-2 RNA (AMY) (NEGATIVE) Med Orders - Current: Current Medications Acetaminophen (Tylenol) 650 mg PO Q4H PRN PRN Reason: Pain (Mild 1-3)/fever Albuterol/Ipratropium (Duoneb 3.0-0.5 Mg/3 Ml) 3 ml NEB Q4HRRT PRN PRN Reason: Shortness of Breath Albuterol/Ipratropium (Duoneb 3.0-0.5 Mg/3 Ml) 3 ml NEB Q4HRRT KJ Last Admin: 05/07/20 06:42 Dose: 3 ml Documented by: Atorvastatin Calcium (Lipitor) 20 mg PO BEDTIME [facility] Last Admin: 05/06/20 21:14 Dose: 20 mg Documented by: Lactated Ringer's (Ringers, Lactated) 1,000 mls @ 125 mls/hr IV ASDIRECTED [facility] Last Admin: 05/06/20 21:18 Dose: 125 mls/hr Documented by: Levofloxacin/Dextrose 750 mg/ (Premix) 150 mls @ 100 mls/hr IV Q48H [facility] Last Admin: 05/06/20 23:56 Dose: 100 mls/hr Documented by: Lisinopril (Prinivil) 10 mg PO DAILY [facility] Last Admin: 05/07/20 08:28 Dose: 10 mg Documented by: Methylprednisolone Sodium Succinate (Solu-Medrol) 40 mg IVPUSH Q12H [facility] Last Admin: 05/07/20 08:28 Dose: 40 mg Documented by: Morphine Sulfate (Morphine) 2 mg IVPUSH Q4H PRN PRN Reason: Pain (severe 7-10) Stop: 05/07/20 19:48 Ondansetron HCl (Zofran) 4 mg IVPUSH Q4H PRN PRN Reason: Nausea/Vomiting Pantoprazole Sodium (Protonix) 40 mg PO DAILY [facility] Last Admin: 05/07/20 08:28 Dose: 40 mg Documented by: Fluticasone/Salmeterol (Advair Diskus 250-50) 1 puff INH BID [facility] Last Admin: 05/06/20 21:15 Dose: 1 puff Documented by: Sodium Chloride (Saline Flush) 10 ml FLUSH ASDIRECTED PRN PRN Reason: Keep Vein Open Sodium Chloride (Saline Flush) 2.5 ml FLUSH ASDIRECTED PRN PRN Reason: Keep Vein Open Sodium Chloride (Normal Saline) 10 ml IV ASDIRECTED PRN PRN Reason: IV Use Tiotropium Triplett (Spiriva Handihaler) 18 mcg INH DAILY [facility] Discontinued Medications Albuterol (Ventolin Hfa) 0 gm INH Q4H PRN PRN Reason: Wheezing Albuterol/Ipratropium (Duoneb 3.0-0.5 Mg/3 Ml) 3 ml NEB ONETIME ONE Stop: 05/06/20 12:54 Last Admin: 05/06/20 13:02 Dose: 3 ml Documented by: Albuterol/Ipratropium (Duoneb 3.0-0.5 Mg/3 Ml) Confirm Administered Dose 3 ml .ROUTE .STK-MED ONE Stop: 05/06/20 13:01 Last Admin: 05/06/20 17:23 Dose: Not Given Documented by: Albuterol/Ipratropium (Duoneb 3.0-0.5 Mg/3 Ml) 3 ml NEB Q4HRRT PRN PRN Reason: Shortness Of Breath/wheezing Cefazolin Sodium (Ancef) Confirm Administered Dose 2 gm .ROUTE .STK-MED ONE Stop: 05/06/20 13:56 Fentanyl (Sublimaze) Confirm Administered Dose 100 mcg .ROUTE .STK-MED ONE Stop: 05/06/20 13:46 Fentanyl (Sublimaze) Confirm Administered Dose 100 mcg .ROUTE .STK-MED ONE Stop: 05/06/20 14:19 Glycopyrrolate (Robinul) Confirm Administered Dose 0.2 mg .ROUTE .STK-MED ONE Stop: 05/06/20 14:17 Lactated Ringer's (Ringers, Lactated) 1,000 mls @ 100 mls/hr IV ASDIRECTED [facility] Last Admin: 05/06/20 13:11 Dose: 100 mls/hr Documented by: Cefazolin Sodium/Dextrose 2 gm (/ Premix) 50 mls @ 100 mls/hr IV ONCALL ONE Stop: 05/06/20 09:10 Last Admin: 05/06/20 17:53 Dose: Not Given Documented by: Sodium Chloride (Normal Saline) Confirm Administered Dose 20 mls @ as directed .ROUTE .STK-MED ONE Stop: 05/06/20 13:56 Levofloxacin/Dextrose 750 mg/ (Premix) 150 mls @ 100 mls/hr IV Q24H [facility] Last Admin: 05/06/20 23:57 Dose: Not Given Documented by: Levofloxacin/Dextrose 750 mg/ (Premix) 150 mls @ 100 mls/hr IV Q48H [facility] Iopamidol (Isovue-M 200 (41%)) Confirm Administered Dose 20 ml .ROUTE .STK-MED ONE Stop: 05/06/20 13:49 Ketorolac Tromethamine (Toradol) Confirm Administered Dose 30 mg .ROUTE .STK-MED ONE Stop: 05/06/20 14:53 Midazolam HCl (Versed 1 Mg/Ml) Confirm Administered Dose 2 mg .ROUTE .STK-MED ONE Stop: 05/06/20 13:47 Ondansetron HCl (Zofran) Confirm Administered Dose 4 mg .ROUTE .STK-MED ONE Stop: 05/06/20 13:47 Propofol (Diprivan 20 Ml) Confirm Administered Dose 400 mg .ROUTE .STK-MED ONE Stop: 05/06/20 13:46 Propofol (Diprivan 20 Ml) Confirm Administered Dose 200 mg .ROUTE .STK-MED ONE Stop: 05/06/20 14:13 Propofol (Diprivan 20 Ml) Confirm Administered Dose 200 mg .ROUTE .STK-MED ONE Stop: 05/06/20 14:19 Propofol (Diprivan 20 Ml) Confirm Administered Dose 200 mg .ROUTE .STK-MED ONE Stop: 05/06/20 14:36 - Exam General: Alert, Oriented, Cooperative, No Acute Distress Lungs: Normal Respiratory Effort, Other (mild wheezes in RLL) Cardiovascular: Regular Rate, Regular Rhythm GI/Abdominal Exam: Normal Bowel Sounds, Soft, Non-Tender, No Distention Extremities: Normal Inspection, No Pedal Edema - Patient Data Lab Results Last 24 hrs: Laboratory Results - last 24 hr 05/06/20 05/06/20 05/06/20 Range/Units 10:30 22:19 22:19 WBC 11.45 H (4.0-11.0) K/uL RBC 3.91 L (4.50-5.90) M/uL Hgb 11.9 L (13.0-17.0) g/dL Hct 35.6 L (38.0-50.0) % MCV 91.0 (80.0-98.0) fL MCH 30.4 (27.0-32.0) pg MCHC 33.4 (31.0-37.0) g/dL RDW Std Deviation 45.6 (28.0-62.0) fl RDW Coeff of Wilfredo 14 (11.0-15.0) % Plt Count 244 (150-400) K/uL MPV 9.80 (7.40-12.00) fL Neut % (Auto) 82.8 H (48.0-80.0) % Lymph % (Auto) 11.0 L (16.0-40.0) % [place] % (Auto) 5.9 (0.0-15.0) % Eos % (Auto) 0.3 (0.0-7.0) % Baso % (Auto) 0.0 (0.0-1.5) % Neut # (Auto) 9.5 H (1.4-5.7) K/uL Lymph # (Auto) 1.3 (0.6-2.4) K/uL [place] # (Auto) 0.7 (0.0-0.8) K/uL Eos # (Auto) 0.0 (0.0-0.7) K/uL Baso # (Auto) 0.0 (0.0-0.1) K/uL Nucleated RBC % 0.0 /100WBC Nucleated RBCs # 0 K/uL Sodium 137 (136-148) mmol/L Potassium 4.2 (3.5-5.1) mmol/L Chloride 103 (98-107) mmol/L Carbon Dioxide 23.4 (21.0-32.0) mmol/L BUN 17 (7.0-18.0) mg/dL Creatinine 1.4 H (0.8-1.3) mg/dL Est Cr Clr Drug Dosing 47.81 mL/min Estimated GFR (MDRD) 49.3 ml/min Glucose 128 H (74-106) mg/dL Calcium 8.1 L (8.5-10.1) mg/dL Phosphorus (2.6-4.7) mg/dL Magnesium (1.8-2.4) mg/dL SARS-CoV-2 RNA (AMY) NEGATIVE (NEGATIVE) 05/07/20 05/07/20 Range/Units 06:35 06:35 WBC 12.73 H (4.0-11.0) K/uL RBC 3.82 L (4.50-5.90) M/uL Hgb 11.7 L (13.0-17.0) g/dL Hct 34.5 L (38.0-50.0) % MCV 90.3 (80.0-98.0) fL MCH 30.6 (27.0-32.0) pg MCHC 33.9 (31.0-37.0) g/dL RDW Std Deviation 44.0 (28.0-62.0) fl RDW Coeff of Wilfredo 13 (11.0-15.0) % Plt Count 248 (150-400) K/uL MPV 9.80 (7.40-12.00) fL Neut % (Auto) 91.1 H (48.0-80.0) % Lymph % (Auto) 4.6 L (16.0-40.0) % [place] % (Auto) 4.2 (0.0-15.0) % Eos % (Auto) 0.0 (0.0-7.0) % Baso % (Auto) 0.1 (0.0-1.5) % Neut # (Auto) 11.6 H (1.4-5.7) K/uL Lymph # (Auto) 0.6 (0.6-2.4) K/uL [place] # (Auto) 0.5 (0.0-0.8) K/uL Eos # (Auto) 0.0 (0.0-0.7) K/uL Baso # (Auto) 0.0 (0.0-0.1) K/uL Nucleated RBC % 0.0 /100WBC Nucleated RBCs # 0 K/uL Sodium 138 (136-148) mmol/L Potassium 4.4 (3.5-5.1) mmol/L Chloride 106 (98-107) mmol/L Carbon Dioxide 22.6 (21.0-32.0) mmol/L BUN 13 (7.0-18.0) mg/dL Creatinine 1.2 (0.8-1.3) mg/dL Est Cr Clr Drug Dosing 55.78 mL/min Estimated GFR (MDRD) 58.9 ml/min Glucose 162 H (74-106) mg/dL Calcium 8.3 L (8.5-10.1) mg/dL Phosphorus 3.6 (2.6-4.7) mg/dL Magnesium 1.8 (1.8-2.4) mg/dL SARS-CoV-2 RNA (AMY) (NEGATIVE) Result Diagrams: 05/07/20 06:35 05/07/20 06:35 Sepsis Event Note - Evaluation Sepsis Screening Result: No Definite Risk - Focused Exam Vital Signs: Vital Signs Temp Pulse Resp BP BP Pulse Ox Pulse Ox 05/07/20 08:28 131/62 05/07/20 04:00 36.8 C 84 16 134/59 L 90 L 05/07/20 03:19 96 05/06/20 23:47 36.4 C 86 16 125/62 95 - Problem List Review Problem List Initiated/Reviewed/Updated: Yes - My Orders Last 24 Hours: My Active Orders 05/06/20 20:10 RT Incentive Spirometry [RC] ASDIRECTED 05/06/20 22:00 Albuterol/Ipratropium [DuoNeb 3.0-0.5 MG/3 ML] 3 ml NEB Q4HRRT 05/07/20 09:00 Pantoprazole [ProTONIX] 40 mg PO DAILY - Plan Plan:: Assessment and Plan: 1. Acute hypoxic respiratory failure secondary to RLL pneumonia: - Continue supplemental oxygen prn, Duonebs q4 KJ, IV solumedrol 40 mg BID and levaquin. Continue using IS diligently. - CXR showed RLL infiltrate vs atelectasis. 2. Left ureter partial stone obstruction: - Patient was taken to the OR 05/06/20 by urology but stent could not be placed. Per urology, planning for lithotripsy next week. 3. Past medical history of COPD, HTN, HLD and BPH: - Continue home medications. 4. DVT prophylaxis: - SCD's. 5. GI prophylaxis: - Pantoprazole 40 mg qd. <Joanna Thomas - Last Filed: 05/08/20 13:15> - General Info Subjective Update: I have seen and evaluated the patient and agree with the residents note unless s pecified in my note - Patient Data Vitals - Most Recent: Last Vital Signs Temp 36.8 C 05/08/20 12:27 Pulse 91 05/08/20 12:27 Resp 16 05/08/20 12:27 BP 172/88 H 05/08/20 12:27 Pulse Ox 95 05/08/20 12:27 I&O - Last 24 Hours: Intake & Output 05/07/20 05/08/20 05/08/20 22:59 06:59 14:59 Intake Total 1229 Output Total 800 Balance 429 Lab Results Last 24 Hours: Laboratory Results - last 24 hr 05/08/20 05/08/20 Range/Units 06:05 06:05 WBC 12.65 H (4.0-11.0) K/uL RBC 3.88 L (4.50-5.90) M/uL Hgb 11.7 L (13.0-17.0) g/dL Hct 35.3 L (38.0-50.0) % MCV 91.0 (80.0-98.0) fL MCH 30.2 (27.0-32.0) pg MCHC 33.1 (31.0-37.0) g/dL RDW Std Deviation 45.6 (28.0-62.0) fl RDW Coeff of Wilfredo 14 (11.0-15.0) % Plt Count 283 (150-400) K/uL MPV 9.90 (7.40-12.00) fL Neut % (Auto) 89.8 H (48.0-80.0) % Lymph % (Auto) 5.8 L (16.0-40.0) % [place] % (Auto) 4.4 (0.0-15.0) % Eos % (Auto) 0.0 (0.0-7.0) % Baso % (Auto) 0.0 (0.0-1.5) % Neut # (Auto) 11.4 H (1.4-5.7) K/uL Lymph # (Auto) 0.7 (0.6-2.4) K/uL [place] # (Auto) 0.6 (0.0-0.8) K/uL Eos # (Auto) 0.0 (0.0-0.7) K/uL Baso # (Auto) 0.0 (0.0-0.1) K/uL Nucleated RBC % 0.0 /100WBC Nucleated RBCs # 0 K/uL Sodium 144 (136-148) mmol/L Potassium 4.6 (3.5-5.1) mmol/L Chloride 110 H (98-107) mmol/L Carbon Dioxide 27.2 (21.0-32.0) mmol/L BUN 14 (7.0-18.0) mg/dL Creatinine 1.1 (0.8-1.3) mg/dL Est Cr Clr Drug Dosing 60.85 mL/min Estimated GFR (MDRD) > 60.0 ml/min Glucose 159 H (74-106) mg/dL Calcium 8.5 (8.5-10.1) mg/dL Med Orders - Current: Current Medications Acetaminophen (Tylenol) 650 mg PO Q4H PRN PRN Reason: Pain (Mild 1-3)/fever Albuterol/Ipratropium (Duoneb 3.0-0.5 Mg/3 Ml) 3 ml NEB Q4HRRT PRN PRN Reason: Shortness of Breath Albuterol/Ipratropium (Duoneb 3.0-0.5 Mg/3 Ml) 3 ml NEB Q4HRRT [facility] Last Admin: 05/08/20 09:44 Dose: 3 ml Documented by: Atorvastatin Calcium (Lipitor) 20 mg PO BEDTIME [facility] Last Admin: 05/07/20 23:58 Dose: 20 mg Documented by: Benzocaine/Menthol (Cepacol Sore Throat) 1 lozenge MUCMEM Q4H PRN PRN Reason: Sore Throat Last Admin: 05/08/20 05:29 Dose: 1 lozenge Documented by: Diphenhydramine/Nystatin/Lidocaine (Magic Mouthwash) 15 ml PO QID PRN PRN Reason: Sore Throat Docusate Sodium (Colace) 100 mg PO BID [facility] Last Admin: 05/08/20 09:33 Dose: 100 mg Documented by: Hydromorphone HCl (Dilaudid) 1 mg IVPUSH Q4H PRN PRN Reason: Pain (severe 7-10) Lactated Ringer's (Ringers, Lactated) 1,000 mls @ 125 mls/hr IV ASDIRECTED [facility] Last Admin: 05/08/20 02:33 Dose: 125 mls/hr Documented by: Levofloxacin/Dextrose 750 mg/ (Premix) 150 mls @ 100 mls/hr IV Q48H [facility] Last Admin: 05/06/20 23:56 Dose: 100 mls/hr Documented by: Lisinopril (Prinivil) 10 mg PO DAILY [facility] Last Admin: 05/08/20 09:33 Dose: 10 mg Documented by: Methylprednisolone Sodium Succinate (Solu-Medrol) 40 mg IVPUSH Q12H [facility] Last Admin: 05/08/20 08:15 Dose: 40 mg Documented by: Ondansetron HCl (Zofran) 4 mg IVPUSH Q4H PRN PRN Reason: Nausea/Vomiting Pantoprazole Sodium (Protonix) 40 mg PO DAILY [facility] Last Admin: 05/08/20 09:33 Dose: 40 mg Documented by: Polyethylene Glycol (Miralax) 17 gm PO DAILY PRN PRN Reason: Constipation Fluticasone/Salmeterol (Advair Diskus 250-50) 1 puff INH BID [facility] Last Admin: 05/08/20 08:37 Dose: 1 puff Documented by: Sodium Chloride (Saline Flush) 10 ml FLUSH ASDIRECTED PRN PRN Reason: Keep Vein Open Sodium Chloride (Saline Flush) 2.5 ml FLUSH ASDIRECTED PRN PRN Reason: Keep Vein Open Sodium Chloride (Normal Saline) 10 ml IV ASDIRECTED PRN PRN Reason: IV Use Sodium Chloride ([place] Nasal [place]) 0 ml BRAEDEN Q4H PRN PRN Reason: DRY NOSE Last Admin: 05/08/20 08:57 Dose: 1 spray Documented by: Tiotropium Triplett (Spiriva Handihaler) 18 mcg INH DAILY [facility] Last Admin: 05/08/20 08:38 Dose: 1 canister Documented by: Discontinued Medications Albuterol (Ventolin Hfa) 0 gm INH Q4H PRN PRN Reason: Wheezing Albuterol/Ipratropium (Duoneb 3.0-0.5 Mg/3 Ml) 3 ml NEB ONETIME ONE Stop: 05/06/20 12:54 Last Admin: 05/06/20 13:02 Dose: 3 ml Documented by: Albuterol/Ipratropium (Duoneb 3.0-0.5 Mg/3 Ml) Confirm Administered Dose 3 ml .ROUTE .STK-MED ONE Stop: 05/06/20 13:01 Last Admin: 05/06/20 17:23 Dose: Not Given Documented by: Albuterol/Ipratropium (Duoneb 3.0-0.5 Mg/3 Ml) 3 ml NEB Q4HRRT PRN PRN Reason: Shortness Of Breath/wheezing Cefazolin Sodium (Ancef) Confirm Administered Dose 2 gm .ROUTE .STK-MED ONE Stop: 05/06/20 13:56 Diphenhydramine/Nystatin/Lidocaine (Magic Mouthwash) 0 ml PO QID PRN PRN Reason: Sore Throat Fentanyl (Sublimaze) Confirm Administered Dose 100 mcg .ROUTE .STK-MED ONE Stop: 05/06/20 13:46 Fentanyl (Sublimaze) Confirm Administered Dose 100 mcg .ROUTE .STK-MED ONE Stop: 05/06/20 14:19 Glycopyrrolate (Robinul) Confirm Administered Dose 0.2 mg .ROUTE .STK-MED ONE Stop: 05/06/20 14:17 Hydromorphone HCl (Dilaudid) 1 mg IVPUSH ONETIME ONE Stop: 05/08/20 08:41 Last Admin: 05/08/20 09:25 Dose: 1 mg Documented by: Lactated Ringer's (Ringers, Lactated) 1,000 mls @ 100 mls/hr IV ASDIRECTED [facility] Last Admin: 05/06/20 13:11 Dose: 100 mls/hr Documented by: Cefazolin Sodium/Dextrose 2 gm (/ Premix) 50 mls @ 100 mls/hr IV ONCALL ONE Stop: 05/06/20 09:10 Last Admin: 05/06/20 17:53 Dose: Not Given Documented by: Sodium Chloride (Normal Saline) Confirm Administered Dose 20 mls @ as directed .ROUTE .STK-MED ONE Stop: 05/06/20 13:56 Levofloxacin/Dextrose 750 mg/ (Premix) 150 mls @ 100 mls/hr IV Q24H [facility] Last Admin: 05/06/20 23:57 Dose: Not Given Documented by: Levofloxacin/Dextrose 750 mg/ (Premix) 150 mls @ 100 mls/hr IV Q48H [facility] Iopamidol (Isovue-M 200 (41%)) Confirm Administered Dose 20 ml .ROUTE .STK-MED ONE Stop: 05/06/20 13:49 Ketorolac Tromethamine (Toradol) Confirm Administered Dose 30 mg .ROUTE .STK-MED ONE Stop: 05/06/20 14:53 Midazolam HCl (Versed 1 Mg/Ml) Confirm Administered Dose 2 mg .ROUTE .STK-MED ONE Stop: 05/06/20 13:47 Morphine Sulfate (Morphine) 2 mg IVPUSH Q4H PRN PRN Reason: Pain (severe 7-10) Stop: 05/07/20 19:48 Morphine Sulfate (Morphine) 1 mg IVPUSH Q3H PRN PRN Reason: Pain Last Admin: 05/08/20 12:41 Dose: 1 mg Documented by: Ondansetron HCl (Zofran) Confirm Administered Dose 4 mg .ROUTE .STK-MED ONE Stop: 05/06/20 13:47 Propofol (Diprivan 20 Ml) Confirm Administered Dose 400 mg .ROUTE .STK-MED ONE Stop: 05/06/20 13:46 Propofol (Diprivan 20 Ml) Confirm Administered Dose 200 mg .ROUTE .STK-MED ONE Stop: 05/06/20 14:13 Propofol (Diprivan 20 Ml) Confirm Administered Dose 200 mg .ROUTE .STK-MED ONE Stop: 05/06/20 14:19 Propofol (Diprivan 20 Ml) Confirm Administered Dose 200 mg .ROUTE .STK-MED ONE Stop: 05/06/20 14:36 - Patient Data Lab Results Last 24 hrs: Laboratory Results - last 24 hr 05/08/20 05/08/20 Range/Units 06:05 06:05 WBC 12.65 H (4.0-11.0) K/uL RBC 3.88 L (4.50-5.90) M/uL Hgb 11.7 L (13.0-17.0) g/dL Hct 35.3 L (38.0-50.0) % MCV 91.0 (80.0-98.0) fL MCH 30.2 (27.0-32.0) pg MCHC 33.1 (31.0-37.0) g/dL RDW Std Deviation 45.6 (28.0-62.0) fl RDW Coeff of Wilfredo 14 (11.0-15.0) % Plt Count 283 (150-400) K/uL MPV 9.90 (7.40-12.00) fL Neut % (Auto) 89.8 H (48.0-80.0) % Lymph % (Auto) 5.8 L (16.0-40.0) % [place] % (Auto) 4.4 (0.0-15.0) % Eos % (Auto) 0.0 (0.0-7.0) % Baso % (Auto) 0.0 (0.0-1.5) % Neut # (Auto) 11.4 H (1.4-5.7) K/uL Lymph # (Auto) 0.7 (0.6-2.4) K/uL [place] # (Auto) 0.6 (0.0-0.8) K/uL Eos # (Auto) 0.0 (0.0-0.7) K/uL Baso # (Auto) 0.0 (0.0-0.1) K/uL Nucleated RBC % 0.0 /100WBC Nucleated RBCs # 0 K/uL Sodium 144 (136-148) mmol/L Potassium 4.6 (3.5-5.1) mmol/L Chloride 110 H (98-107) mmol/L Carbon Dioxide 27.2 (21.0-32.0) mmol/L BUN 14 (7.0-18.0) mg/dL Creatinine 1.1 (0.8-1.3) mg/dL Est Cr Clr Drug Dosing 60.85 mL/min Estimated GFR (MDRD) > 60.0 ml/min Glucose 159 H (74-106) mg/dL Calcium 8.5 (8.5-10.1) mg/dL Result Diagrams: 05/08/20 06:05 05/08/20 06:05 Sepsis Event Note - Focused Exam Vital Signs: Vital Signs Temp Pulse Resp BP BP BP Pulse Ox 05/08/20 12:27 36.8 C 91 16 172/88 H 95 05/08/20 09:33 160/75 H 05/08/20 09:31 36.3 C 90 160/75 H 95 05/08/20 04:00 37.0 C 83 18 130/70 94 L 05/08/20 03:00 Pulse Ox 05/08/20 12:27 05/08/20 09:33 05/08/20 09:31 05/08/20 04:00 05/08/20 03:00 91 L - Problem List & Annotations (1) Ureteral stone SNOMED Code(s): 64200898 Code(s): N20.1 - CALCULUS OF URETER Status: Acute Current Visit: Yes (2) COPD (chronic obstructive pulmonary disease) SNOMED Code(s): 71225812 Code(s): J44.9 - CHRONIC OBSTRUCTIVE PULMONARY DISEASE, UNSPECIFIED Status: Acute Current Visit: Yes (3) HTN (hypertension) SNOMED Code(s): 82195964 Code(s): I10 - ESSENTIAL (PRIMARY) HYPERTENSION Status: Acute Current Visit: Yes (4) Acute hypoxemic respiratory failure SNOMED Code(s): 521695439 Code(s): J96.01 - ACUTE RESPIRATORY FAILURE WITH HYPOXIA Status: Acute Current Visit: Yes (5) BPH (benign prostatic hyperplasia) SNOMED Code(s): 231291781 Code(s): N40.0 - BENIGN PROSTATIC HYPERPLASIA WITHOUT LOWER URINRY TRACT SYMP Status: Acute Current Visit: Yes (6) HLD (hyperlipidemia) SNOMED Code(s): 65337148 Code(s): E78.5 - HYPERLIPIDEMIA, UNSPECIFIED Status: Acute Current Visit: Yes (7) Pneumonia SNOMED Code(s): 020328152 Code(s): J18.9 - PNEUMONIA, UNSPECIFIED ORGANISM Status: Acute Current Visit: Yes - My Orders Last 24 Hours: My Active Orders 05/08/20 03:12 Benzocaine/Cetylpyrd/Menthol [Cepacol Sore Throat] 1 lozenge MUCMEM Q4H PRN 05/08/20 05:51 Diphenhyd/Lidocaine/Nystatin [Magic Mouthwash] 15 ml PO QID PRN 05/08/20 08:45 Sodium Chloride 0.65% [[place] Nasal [place]] 0 ml BRAEDEN Q4H PRN 05/08/20 13:09 polyethylene glycoL 3350 [MiraLAX] 17 gm PO DAILY PRN 05/08/20 14:08 HYDROmorphone [Dilaudid] 1 mg IVPUSH Q4H PRN
[2020-05-07] MEDS: Fluticasone/Salmeterol 250-50 MCG Inhalation Powder 14/Diskus INH SCH ×2 (10:16→23:59)
[2020-05-07] MEDS: Tiotropium Inhaler 18 MCG Inhalation Powder Cap Kit of 5 INH SCH (10:17)
[2020-05-07] MEDS: Docusate Sodium 100 MG Cap PO SCH ×2 (14:37→23:58)
[2020-05-07] MEDS: Lactated Ringers 1,000 ML IV SCH (18:01)
[2020-05-07] MEDS: atorvaSTATin 20 MG Tab PO SCH (23:58)
[2020-05-08] MEDS: Lactated Ringers 1,000 ML IV SCH ×2 (02:33→22:03)
[2020-05-08] MEDS: Albuterol/Ipratropium 3.0-0.5 MG/3 ML Neb Soln NEB SCH ×6 (02:34→23:36)
[2020-05-08] MEDS ORDERED: Diphenhydramine/Lidocaine/Nystatin Suspension 237 ML Bottle PO PRN ×2 (03:11→05:51)
[2020-05-08] MEDS ORDERED: Benzocaine/Cetylpyridinium/Menthol Lozenge MUCMEM PRN (03:12)
[2020-05-08 07:03] LABS: BLOOD UREA NITROGEN,BUN 14 mg/dL (7.0-18.0); CARBON DIOXIDE,CO2 27.2 mmol/L (21.0-32.0); CHLORIDE,CL 110 mmol/L (98-107); GLUCOSE RANDOM 159 mg/dL (74-106); POTASSIUM,K 4.6 mmol/L (3.5-5.1); SODIUM,NA 144 mmol/L (136-148)
[2020-05-08] MEDS: Morphine 2 MG/ML SYRINGE IVPUSH PRN ×2 (08:11→12:41)
[2020-05-08] MEDS: methylPREDNISolone Sodium Succinate 40 MG/1 ML SDV IVPUSH SCH ×2 (08:15→21:18)
[2020-05-08] MEDS: Fluticasone/Salmeterol 250-50 MCG Inhalation Powder 14/Diskus INH SCH ×2 (08:37→21:31)
[2020-05-08] MEDS: Tiotropium Inhaler 18 MCG Inhalation Powder Cap Kit of 5 INH SCH (08:38)
[2020-05-08] MEDS ORDERED: HYDROmorphone 1 MG/ML Syringe IVPUSH ONE (08:40)
[2020-05-08] MEDS ORDERED: Sodium Chloride 0.65% Nasal Spray 45 ML Bottle NAS PRN (08:45)
[2020-05-08] MEDS: Pantoprazole 40 MG Tab.CR PO SCH (09:33)
[2020-05-08] MEDS: Lisinopril 10 MG Tab PO SCH (09:33)
[2020-05-08] MEDS: Docusate Sodium 100 MG Cap PO SCH ×2 (09:33→21:17)
[2020-05-08] MEDS ORDERED: Polyethylene Glycol 3350 Powder 17 GM Packet PO PRN (13:09)
--- NOTE | 2020-05-08 13:15 | PCM.PN ---
- General Info Date of Service: 05/08/20 Admission Dx/Problem (Free Text): Admission Diagnosis/Problem Admission Diagnosis/Problem Hypoxia Subjective Update: Patient reports breathing feels a bit better. Denies having much of a cough. No fevers, chills, chest pain, nausea or vomiting overnight. c/o pain in his right flank this AM after his Reilly was completely full, he feel his urine put "back pressure" and caused him pain. - Review of Systems General: Denies: Fever, Weakness Pulmonary: Denies: Shortness of Breath, Pleuritic Chest Pain Gastrointestinal: Reports: Constipation. Denies: Abdominal Pain, Decreased Appetite, Diarrhea Genitourinary: Denies: Dysuria, Frequency, Burning Musculoskeletal: Denies: Neck Pain, Shoulder Pain Skin: Denies: Cyanosis, Jaundice, Mottled - Patient Data Vitals - Most Recent: Last Vital Signs Temp 36.8 C 05/08/20 12:27 Pulse 91 05/08/20 12:27 Resp 16 05/08/20 12:27 BP 172/88 H 05/08/20 12:27 Pulse Ox 95 05/08/20 12:27 Weight - Most Recent: 128.684 kg I&O - Last 24 Hours: Intake & Output 05/07/20 05/08/20 05/08/20 22:59 06:59 14:59 Intake Total 1229 Output Total 800 Balance 429 Lab Results Last 24 Hours: Laboratory Results - last 24 hr 05/08/20 05/08/20 Range/Units 06:05 06:05 WBC 12.65 H (4.0-11.0) K/uL RBC 3.88 L (4.50-5.90) M/uL Hgb 11.7 L (13.0-17.0) g/dL Hct 35.3 L (38.0-50.0) % MCV 91.0 (80.0-98.0) fL MCH 30.2 (27.0-32.0) pg MCHC 33.1 (31.0-37.0) g/dL RDW Std Deviation 45.6 (28.0-62.0) fl RDW Coeff of Wilfredo 14 (11.0-15.0) % Plt Count 283 (150-400) K/uL MPV 9.90 (7.40-12.00) fL Neut % (Auto) 89.8 H (48.0-80.0) % Lymph % (Auto) 5.8 L (16.0-40.0) % [place] % (Auto) 4.4 (0.0-15.0) % Eos % (Auto) 0.0 (0.0-7.0) % Baso % (Auto) 0.0 (0.0-1.5) % Neut # (Auto) 11.4 H (1.4-5.7) K/uL Lymph # (Auto) 0.7 (0.6-2.4) K/uL [place] # (Auto) 0.6 (0.0-0.8) K/uL Eos # (Auto) 0.0 (0.0-0.7) K/uL Baso # (Auto) 0.0 (0.0-0.1) K/uL Nucleated RBC % 0.0 /100WBC Nucleated RBCs # 0 K/uL Sodium 144 (136-148) mmol/L Potassium 4.6 (3.5-5.1) mmol/L Chloride 110 H (98-107) mmol/L Carbon Dioxide 27.2 (21.0-32.0) mmol/L BUN 14 (7.0-18.0) mg/dL Creatinine 1.1 (0.8-1.3) mg/dL Est Cr Clr Drug Dosing 60.85 mL/min Estimated GFR (MDRD) > 60.0 ml/min Glucose 159 H (74-106) mg/dL Calcium 8.5 (8.5-10.1) mg/dL Med Orders - Current: Current Medications Acetaminophen (Tylenol) 650 mg PO Q4H PRN PRN Reason: Pain (Mild 1-3)/fever Albuterol/Ipratropium (Duoneb 3.0-0.5 Mg/3 Ml) 3 ml NEB Q4HRRT PRN PRN Reason: Shortness of Breath Albuterol/Ipratropium (Duoneb 3.0-0.5 Mg/3 Ml) 3 ml NEB Q4HRRT [facility] Last Admin: 05/08/20 09:44 Dose: 3 ml Documented by: Atorvastatin Calcium (Lipitor) 20 mg PO BEDTIME [facility] Last Admin: 05/07/20 23:58 Dose: 20 mg Documented by: Benzocaine/Menthol (Cepacol Sore Throat) 1 lozenge MUCMEM Q4H PRN PRN Reason: Sore Throat Last Admin: 05/08/20 05:29 Dose: 1 lozenge Documented by: Diphenhydramine/Nystatin/Lidocaine (Magic Mouthwash) 15 ml PO QID PRN PRN Reason: Sore Throat Docusate Sodium (Colace) 100 mg PO BID [facility] Last Admin: 05/08/20 09:33 Dose: 100 mg Documented by: Hydromorphone HCl (Dilaudid) 1 mg IVPUSH Q4H PRN PRN Reason: Pain (severe 7-10) Lactated Ringer's (Ringers, Lactated) 1,000 mls @ 125 mls/hr IV ASDIRECTED [facility] Last Admin: 05/08/20 02:33 Dose: 125 mls/hr Documented by: Levofloxacin/Dextrose 750 mg/ (Premix) 150 mls @ 100 mls/hr IV Q48H [facility] Last Admin: 05/06/20 23:56 Dose: 100 mls/hr Documented by: Lisinopril (Prinivil) 10 mg PO DAILY [facility] Last Admin: 05/08/20 09:33 Dose: 10 mg Documented by: Methylprednisolone Sodium Succinate (Solu-Medrol) 40 mg IVPUSH Q12H [facility] Last Admin: 05/08/20 08:15 Dose: 40 mg Documented by: Ondansetron HCl (Zofran) 4 mg IVPUSH Q4H PRN PRN Reason: Nausea/Vomiting Pantoprazole Sodium (Protonix) 40 mg PO DAILY [facility] Last Admin: 05/08/20 09:33 Dose: 40 mg Documented by: Polyethylene Glycol (Miralax) 17 gm PO DAILY PRN PRN Reason: Constipation Fluticasone/Salmeterol (Advair Diskus 250-50) 1 puff INH BID [facility] Last Admin: 05/08/20 08:37 Dose: 1 puff Documented by: Sodium Chloride (Saline Flush) 10 ml FLUSH ASDIRECTED PRN PRN Reason: Keep Vein Open Sodium Chloride (Saline Flush) 2.5 ml FLUSH ASDIRECTED PRN PRN Reason: Keep Vein Open Sodium Chloride (Normal Saline) 10 ml IV ASDIRECTED PRN PRN Reason: IV Use Sodium Chloride (Woody Nasal [place]) 0 ml BRAEDEN Q4H PRN PRN Reason: DRY NOSE Last Admin: 05/08/20 08:57 Dose: 1 spray Documented by: Tiotropium Streeter (Spiriva Handihaler) 18 mcg INH DAILY [facility] Last Admin: 05/08/20 08:38 Dose: 1 canister Documented by: Discontinued Medications Albuterol (Ventolin Hfa) 0 gm INH Q4H PRN PRN Reason: Wheezing Albuterol/Ipratropium (Duoneb 3.0-0.5 Mg/3 Ml) 3 ml NEB ONETIME ONE Stop: 05/06/20 12:54 Last Admin: 05/06/20 13:02 Dose: 3 ml Documented by: Albuterol/Ipratropium (Duoneb 3.0-0.5 Mg/3 Ml) Confirm Administered Dose 3 ml .ROUTE .STK-MED ONE Stop: 05/06/20 13:01 Last Admin: 05/06/20 17:23 Dose: Not Given Documented by: Albuterol/Ipratropium (Duoneb 3.0-0.5 Mg/3 Ml) 3 ml NEB Q4HRRT PRN PRN Reason: Shortness Of Breath/wheezing Cefazolin Sodium (Ancef) Confirm Administered Dose 2 gm .ROUTE .STK-MED ONE Stop: 05/06/20 13:56 Diphenhydramine/Nystatin/Lidocaine (Magic Mouthwash) 0 ml PO QID PRN PRN Reason: Sore Throat Fentanyl (Sublimaze) Confirm Administered Dose 100 mcg .ROUTE .STK-MED ONE Stop: 05/06/20 13:46 Fentanyl (Sublimaze) Confirm Administered Dose 100 mcg .ROUTE .STK-MED ONE Stop: 05/06/20 14:19 Glycopyrrolate (Robinul) Confirm Administered Dose 0.2 mg .ROUTE .STK-MED ONE Stop: 05/06/20 14:17 Hydromorphone HCl (Dilaudid) 1 mg IVPUSH ONETIME ONE Stop: 05/08/20 08:41 Last Admin: 05/08/20 09:25 Dose: 1 mg Documented by: Lactated Ringer's (Ringers, Lactated) 1,000 mls @ 100 mls/hr IV ASDIRECTED [facility] Last Admin: 05/06/20 13:11 Dose: 100 mls/hr Documented by: Cefazolin Sodium/Dextrose 2 gm (/ Premix) 50 mls @ 100 mls/hr IV ONCALL ONE Stop: 05/06/20 09:10 Last Admin: 05/06/20 17:53 Dose: Not Given Documented by: Sodium Chloride (Normal Saline) Confirm Administered Dose 20 mls @ as directed .ROUTE .STK-MED ONE Stop: 05/06/20 13:56 Levofloxacin/Dextrose 750 mg/ (Premix) 150 mls @ 100 mls/hr IV Q24H [facility] Last Admin: 05/06/20 23:57 Dose: Not Given Documented by: Levofloxacin/Dextrose 750 mg/ (Premix) 150 mls @ 100 mls/hr IV Q48H [facility] Iopamidol (Isovue-M 200 (41%)) Confirm Administered Dose 20 ml .ROUTE .STK-MED ONE Stop: 05/06/20 13:49 Ketorolac Tromethamine (Toradol) Confirm Administered Dose 30 mg .ROUTE .STK-MED ONE Stop: 05/06/20 14:53 Midazolam HCl (Versed 1 Mg/Ml) Confirm Administered Dose 2 mg .ROUTE .STK-MED ONE Stop: 05/06/20 13:47 Morphine Sulfate (Morphine) 2 mg IVPUSH Q4H PRN PRN Reason: Pain (severe 7-10) Stop: 05/07/20 19:48 Morphine Sulfate (Morphine) 1 mg IVPUSH Q3H PRN PRN Reason: Pain Last Admin: 05/08/20 12:41 Dose: 1 mg Documented by: Ondansetron HCl (Zofran) Confirm Administered Dose 4 mg .ROUTE .STK-MED ONE Stop: 05/06/20 13:47 Propofol (Diprivan 20 Ml) Confirm Administered Dose 400 mg .ROUTE .STK-MED ONE Stop: 05/06/20 13:46 Propofol (Diprivan 20 Ml) Confirm Administered Dose 200 mg .ROUTE .STK-MED ONE Stop: 05/06/20 14:13 Propofol (Diprivan 20 Ml) Confirm Administered Dose 200 mg .ROUTE .STK-MED ONE Stop: 05/06/20 14:19 Propofol (Diprivan 20 Ml) Confirm Administered Dose 200 mg .ROUTE .STK-MED ONE Stop: 05/06/20 14:36 - Exam Quality Assessment: Supplemental Oxygen General: Alert, Oriented Lungs: Clear to Auscultation, Normal Respiratory Effort, Wheezing GI/Abdominal Exam: Normal Bowel Sounds, Soft, Non-Tender Back Exam: CVA Tenderness (L) Extremities: Normal Inspection, Normal Range of Motion - Patient Data Lab Results Last 24 hrs: Laboratory Results - last 24 hr 05/08/20 05/08/20 Range/Units 06:05 06:05 WBC 12.65 H (4.0-11.0) K/uL RBC 3.88 L (4.50-5.90) M/uL Hgb 11.7 L (13.0-17.0) g/dL Hct 35.3 L (38.0-50.0) % MCV 91.0 (80.0-98.0) fL MCH 30.2 (27.0-32.0) pg MCHC 33.1 (31.0-37.0) g/dL RDW Std Deviation 45.6 (28.0-62.0) fl RDW Coeff of Wilfredo 14 (11.0-15.0) % Plt Count 283 (150-400) K/uL MPV 9.90 (7.40-12.00) fL Neut % (Auto) 89.8 H (48.0-80.0) % Lymph % (Auto) 5.8 L (16.0-40.0) % [place] % (Auto) 4.4 (0.0-15.0) % Eos % (Auto) 0.0 (0.0-7.0) % Baso % (Auto) 0.0 (0.0-1.5) % Neut # (Auto) 11.4 H (1.4-5.7) K/uL Lymph # (Auto) 0.7 (0.6-2.4) K/uL [place] # (Auto) 0.6 (0.0-0.8) K/uL Eos # (Auto) 0.0 (0.0-0.7) K/uL Baso # (Auto) 0.0 (0.0-0.1) K/uL Nucleated RBC % 0.0 /100WBC Nucleated RBCs # 0 K/uL Sodium 144 (136-148) mmol/L Potassium 4.6 (3.5-5.1) mmol/L Chloride 110 H (98-107) mmol/L Carbon Dioxide 27.2 (21.0-32.0) mmol/L BUN 14 (7.0-18.0) mg/dL Creatinine 1.1 (0.8-1.3) mg/dL Est Cr Clr Drug Dosing 60.85 mL/min Estimated GFR (MDRD) > 60.0 ml/min Glucose 159 H (74-106) mg/dL Calcium 8.5 (8.5-10.1) mg/dL Result Diagrams: 05/08/20 06:05 05/08/20 06:05 Sepsis Event Note - Evaluation Sepsis Screening Result: No Definite Risk - Focused Exam Vital Signs: Vital Signs Temp Pulse Resp BP BP BP Pulse Ox 05/08/20 12:27 36.8 C 91 16 172/88 H 95 05/08/20 09:33 160/75 H 05/08/20 09:31 36.3 C 90 160/75 H 95 05/08/20 04:00 37.0 C 83 18 130/70 94 L 05/08/20 03:00 Pulse Ox 05/08/20 12:27 05/08/20 09:33 05/08/20 09:31 05/08/20 04:00 05/08/20 03:00 91 L - Problem List & Annotations (1) Ureteral stone SNOMED Code(s): 73956056 Code(s): N20.1 - CALCULUS OF URETER Status: Acute Current Visit: Yes (2) COPD (chronic obstructive pulmonary disease) SNOMED Code(s): 94579465 Code(s): J44.9 - CHRONIC OBSTRUCTIVE PULMONARY DISEASE, UNSPECIFIED Status: Acute Current Visit: Yes (3) HTN (hypertension) SNOMED Code(s): 49903560 Code(s): I10 - ESSENTIAL (PRIMARY) HYPERTENSION Status: Acute Current Visit: Yes (4) Acute hypoxemic respiratory failure SNOMED Code(s): 435042231 Code(s): J96.01 - ACUTE RESPIRATORY FAILURE WITH HYPOXIA Status: Acute Current Visit: Yes (5) BPH (benign prostatic hyperplasia) SNOMED Code(s): 637550823 Code(s): N40.0 - BENIGN PROSTATIC HYPERPLASIA WITHOUT LOWER URINRY TRACT SYMP Status: Acute Current Visit: Yes (6) HLD (hyperlipidemia) SNOMED Code(s): 68593954 Code(s): E78.5 - HYPERLIPIDEMIA, UNSPECIFIED Status: Acute Current Visit: Yes (7) Pneumonia SNOMED Code(s): 405150525 Code(s): J18.9 - PNEUMONIA, UNSPECIFIED ORGANISM Status: Acute Current Visit: Yes - Problem List Review Problem List Initiated/Reviewed/Updated: Yes - My Orders Last 24 Hours: My Active Orders 05/08/20 03:12 Benzocaine/Cetylpyrd/Menthol [Cepacol Sore Throat] 1 lozenge MUCMEM Q4H PRN 05/08/20 05:51 Diphenhyd/Lidocaine/Nystatin [Magic Mouthwash] 15 ml PO QID PRN 05/08/20 08:45 Sodium Chloride 0.65% [Woody Nasal [place]] 0 ml BRAEDEN Q4H PRN 05/08/20 13:09 polyethylene glycoL 3350 [MiraLAX] 17 gm PO DAILY PRN 05/08/20 14:08 HYDROmorphone [Dilaudid] 1 mg IVPUSH Q4H PRN - Plan Plan:: Assessment and Plan: 1. Acute hypoxic respiratory failure secondary to RLL pneumonia: - Continue supplemental oxygen prn, Duonebs q4 JK, IV solumedrol 40 mg BID and levaquin. Continue using IS diligently. - CXR showed RLL infiltrate vs atelectasis. 2. Left ureter partial stone obstruction: - Patient was taken to the OR 05/06/20 by urology but stent could not be placed. Per urology, planning for lithotripsy next week. cont pain control with Dilaudid as needed - no fever, WBC count resolving -urine looks clear in Reilly no more hematuria 3. Past medical history of COPD, HTN, HLD and BPH: - Continue home medications. 4. DVT prophylaxis: - SCD's. 5. GI prophylaxis: - Pantoprazole 40 mg qd.
[2020-05-08] MEDS: HYDROmorphone 1 MG/ML Syringe IVPUSH PRN ×2 (16:02→21:22)
[2020-05-08] MEDS ORDERED: Tamsulosin 0.4 MG Cap.ER PO SCH (17:15)
[2020-05-08] MEDS ORDERED: Lactated Ringers 500 ML IV ONE (17:29)
[2020-05-08] MEDS: atorvaSTATin 20 MG Tab PO SCH (21:17)
[2020-05-08] MEDS ORDERED: Levofloxacin/Dextrose 5%-Water 750 MG in Premix Bag 1 BAG IV SCH (22:00)
[2020-05-08] MEDS: Levofloxacin/Dextrose 5%-Water 750 MG in Premix Bag 1 BAG IV SCH (23:38)
[2020-05-09] MEDS: Albuterol/Ipratropium 3.0-0.5 MG/3 ML Neb Soln NEB SCH ×5 (03:14→18:00)
[2020-05-09] MEDS: HYDROmorphone 1 MG/ML Syringe IVPUSH PRN ×4 (05:20→18:00)
[2020-05-09 06:34] LABS: CARBON DIOXIDE,CO2 25.4 mmol/L (21.0-32.0); POTASSIUM,K 4.4 mmol/L (3.5-5.1)
[2020-05-09] MEDS: Lactated Ringers 1,000 ML IV SCH (06:57)
--- NOTE | 2020-05-09 08:47 | CR ---
INDICATION: Left ureteral stent placement. TECHNIQUE: Intraoperative fluoroscopic spot films. FINDINGS: Multiple fluoroscopic spot films during placement of a stent in the left kidney. Dictated by Aubrey Hall MD @ May 09 2020 8:44AM Signed by Dr. Aubrey Hall @ May 09 2020 8:45AM
[2020-05-09] MEDS: methylPREDNISolone Sodium Succinate 40 MG/1 ML SDV IVPUSH SCH (08:52)
[2020-05-09] MEDS: Pantoprazole 40 MG Tab.CR PO SCH (09:24)
[2020-05-09] MEDS: Lisinopril 10 MG Tab PO SCH (09:24)
[2020-05-09] MEDS: Docusate Sodium 100 MG Cap PO SCH (09:24)
[2020-05-09] MEDS: Tiotropium Inhaler 18 MCG Inhalation Powder Cap Kit of 5 INH SCH (09:52)
[2020-05-09] MEDS: Fluticasone/Salmeterol 250-50 MCG Inhalation Powder 14/Diskus INH SCH (09:53)
[2020-05-09] MEDS ORDERED: Lactated Ringers 500 ML IV STA (10:19)
--- NOTE | 2020-05-09 11:44 | CT ---
INDICATION: Left renal stone. TECHNIQUE: CT abdomen and pelvis without contrast. COMPARISON: None. FINDINGS: Lower chest: Trace pleural effusions. Liver: Normal in size and attenuation. No masses. Gallbladder and bile ducts: No stones or inflammation. No biliary dilatation. Pancreas: Unremarkable. No mass or inflammation. Spleen: Normal in size. No masses. Adrenal glands: There are prominent bilateral adrenal nodules with Hounsfield units less than 0 consistent with benign adenomas. Kidneys: An 8 x 5 mm proximal stone is at the ureteropelvic junction causing mild hydronephrosis. A 2nd tiny stone remains in the left kidney. No right-sided stones. Benign cysts are in the left kidney. GI tract: Unremarkable. Normal in caliber. No sign of mass or inflammation. Normal appendix. Vasculature: Very minimal saccular aneurysmal dilatation of the infrarenal abdominal aorta. Lymph nodes: No lymphadenopathy. Abdominal wall/Omentum/Peritoneum: Nonspecific mild left retroperitoneal fat stranding as demonstrated on the axial series 201, image 129. This is of doubtful significance. No intra-abdominal free air or fluid collections. Pelvis: Reilly catheter is within a decompressed bladder. Prostate gland is moderately enlarged. Bones: Unremarkable for age. IMPRESSION: 1. 8 x 5 mm stone at the left UPJ causing mild hydronephrosis. 2. Prominent bilateral adrenal adenomas. 3. Trace bilateral pleural effusions. 4. Prostatomegaly. Please note that all CT scans at this facility use dose modulation, iterative reconstruction, and/or weight-based dosing when appropriate to reduce radiation dose to as low as reasonably achievable. Dictated by Naren Kennedy MD @ May 09 2020 11:33AM Signed by Dr. Naren Kennedy @ May 09 2020 11:43AM
--- NOTE | 2020-05-09 16:37 | PCM.DCSUM1 ---
<Damon Gardner - Last Filed: 05/10/20 11:39> Discharge Summary - Hospital Course Free Text/Narrative:: 74-year-old male with past medical history of COPD, hypertension, hyperlipidemia, BPH, renal calculus admitted on 05-06-20 for unsuccessful stent placement due to a left upper urethral stone causing partial obstruction. Per documentation stent placement was unsuccessful due to prostate enlargement. Post procedure patient was unable to be weaned off oxygen and admitted for monitoring. Patient thus far has only required 1 L oxygen via nasal cannula during admission course. Patient does not use home oxygen at baseline, history of smoking 1 pack/day. Patient was kept over the weekend with plans to have lithotripsy performed but equipment was not available until of this week. Per urologist decision was made to transfer patient to [facility] in [place] for lithotripsy and stent placement. Upon admission patient was also noted to have infiltrates of the transfer right lower lobe, patient treated with Levaquin for suspected pneumonia. Patient has been stable during his course of stay with vitals within normal limits, oxygen saturations at roughly 91-92% on 1 L oxygen via nasal cannula. White blood cell count elevated 17.76 most likely reactive. BUN 21, creatinine 1.4. CT abdomen/pelvis obtained today shows 8 x 5 mm stone in the left UPJ causing mild hydronephrosis. Patient treated with supplemental oxygen as needed, duo nebs, Levaquin, IV flui ds, Dilaudid for pain control. Upon discharge patient states mild left-sided flank pain, no abdominal pain, no nausea, no vomiting, no chest pain, no shortness of breath, no dizziness, no lightheadedness, no fever, no chills. Reilly placed with adequate urine output, no signs of hematuria. Patient discharged to [facility] for further treatment. - Discharge Data Discharge Disposition: DC/Tfer to Acute Hospital 02 Condition: Good - Referral to Home Health Primary Care Physician: PCP None - Patient Summary/Data Consults: Consultations 05/08/20 16:29 Consult to Physician [CONS] Routine - Patient Instructions Diet: Heart Healthy Diet Activity: As Tolerated Driving: Do Not Drive Showering/Bathing: Shower in AM Notify Provider of: Fever, Increased Pain, Drainage, Nausea and/or Vomiting - Discharge Plan *COPY OF PRESCRIPTION DRUG MONITORING REPORT IN PATIENT MAXIMO: No Home Medications: Home Meds Albuterol Sulfate [Albuterol Sulfate HFA] 2 puff INH Q4H PRN 05/06/20 [History] Fluticasone Propion/Salmeterol [Advair 250-50 Diskus] 1 inhalation INH BID 05/06/20 [History] Tiotropium [Spiriva HandiHaler] 1 cap INH DAILY 05/06/20 [History] atorvaSTATin Calcium [Atorvastatin Calcium] 20 mg PO DAILY 05/06/20 [History] lisinopriL [Lisinopril] 10 mg PO DAILY 05/06/20 [History] Patient Handouts: Indwelling Urinary Catheter Insertion, Care After Referrals: Serina Singh MD [Physician] - - General Info Date of Service: 05/09/20 Subjective Update: Patient denies fever, chills, nausea, vomiting, abdominal pain. Patient states mild left-sided flank pain. - Review of Systems General: Denies: Fever, Chills Pulmonary: Denies: Shortness of Breath, Cough Cardiovascular: Denies: Chest Pain Gastrointestinal: Denies: Abdominal Pain, Nausea, Vomiting Genitourinary: Reports: Flank Pain (left) Neurological: Denies: Confusion, Dizziness Psychiatric: Denies: Confusion - Patient Data Vitals - Most Recent: Last Vital Signs Temp 97.8 F 05/09/20 11:47 Pulse 94 05/09/20 11:47 Resp 22 H 05/09/20 11:47 BP 122/64 05/09/20 11:47 Pulse Ox 90 L 05/09/20 11:47 Weight - Most Recent: 128.684 kg I&O - Last 24 hours: Intake & Output 05/09/20 05/09/20 05/09/20 06:59 14:59 22:59 Intake Total 2650 446 Output Total 1550 700 Balance 1100 -254 Lab Results - Last 24 hrs: Laboratory Results - last 24 hr 05/09/20 05/09/20 Range/Units 05:50 05:50 WBC 17.76 H (4.0-11.0) K/uL RBC 3.68 L (4.50-5.90) M/uL Hgb 11.2 L (13.0-17.0) g/dL Hct 33.6 L (38.0-50.0) % MCV 91.3 (80.0-98.0) fL MCH 30.4 (27.0-32.0) pg MCHC 33.3 (31.0-37.0) g/dL RDW Std Deviation 46.1 (28.0-62.0) fl RDW Coeff of Wilfredo 14 (11.0-15.0) % Plt Count 265 (150-400) K/uL MPV 9.60 (7.40-12.00) fL Neut % (Auto) 87.6 H (48.0-80.0) % Lymph % (Auto) 3.7 L (16.0-40.0) % [place] % (Auto) 8.6 (0.0-15.0) % Eos % (Auto) 0.0 (0.0-7.0) % Baso % (Auto) 0.1 (0.0-1.5) % Neut # (Auto) 15.6 H (1.4-5.7) K/uL Lymph # (Auto) 0.7 (0.6-2.4) K/uL [place] # (Auto) 1.5 H (0.0-0.8) K/uL Eos # (Auto) 0.0 (0.0-0.7) K/uL Baso # (Auto) 0.0 (0.0-0.1) K/uL Nucleated RBC % 0.0 /100WBC Nucleated RBCs # 0 K/uL Sodium 137 (136-148) mmol/L Potassium 4.4 (3.5-5.1) mmol/L Chloride 103 (98-107) mmol/L Carbon Dioxide 25.4 (21.0-32.0) mmol/L BUN 21 H (7.0-18.0) mg/dL Creatinine 1.4 H (0.8-1.3) mg/dL Est Cr Clr Drug Dosing 47.81 mL/min Estimated GFR (MDRD) 49.3 ml/min Glucose 155 H (74-106) mg/dL Calcium 8.3 L (8.5-10.1) mg/dL Med Orders - Current: Current Medications Acetaminophen (Tylenol) 650 mg PO Q4H PRN PRN Reason: Pain (Mild 1-3)/fever Albuterol/Ipratropium (Duoneb 3.0-0.5 Mg/3 Ml) 3 ml NEB Q4HRRT PRN PRN Reason: Shortness of Breath Albuterol/Ipratropium (Duoneb 3.0-0.5 Mg/3 Ml) 3 ml NEB Q4HRRT [facility] Last Admin: 05/09/20 14:45 Dose: 3 ml Documented by: Atorvastatin Calcium (Lipitor) 20 mg PO BEDTIME [facility] Last Admin: 05/08/20 21:17 Dose: 20 mg Documented by: Benzocaine/Menthol (Cepacol Sore Throat) 1 lozenge MUCMEM Q4H PRN PRN Reason: Sore Throat Last Admin: 05/08/20 05:29 Dose: 1 lozenge Documented by: Diphenhydramine/Nystatin/Lidocaine (Magic Mouthwash) 15 ml PO QID PRN PRN Reason: Sore Throat Docusate Sodium (Colace) 100 mg PO BID [facility] Last Admin: 05/09/20 09:24 Dose: 100 mg Documented by: Hydromorphone HCl (Dilaudid) 1 mg IVPUSH Q4H PRN PRN Reason: Pain (severe 7-10) Last Admin: 05/09/20 16:14 Dose: 1 mg Documented by: Lactated Ringer's (Ringers, Lactated) 1,000 mls @ 125 mls/hr IV ASDIRECTED [facility] Last Admin: 05/09/20 06:57 Dose: 125 mls/hr Documented by: Levofloxacin/Dextrose 750 mg/ (Premix) 150 mls @ 100 mls/hr IV Q48H [facility] Last Admin: 05/08/20 23:38 Dose: 100 mls/hr Documented by: Lisinopril (Prinivil) 10 mg PO DAILY [facility] Last Admin: 05/09/20 09:24 Dose: 10 mg Documented by: Methylprednisolone Sodium Succinate (Solu-Medrol) 40 mg IVPUSH Q12H [facility] Last Admin: 05/09/20 08:52 Dose: 40 mg Documented by: Ondansetron HCl (Zofran) 4 mg IVPUSH Q4H PRN PRN Reason: Nausea/Vomiting Pantoprazole Sodium (Protonix) 40 mg PO DAILY [facility] Last Admin: 05/09/20 09:24 Dose: 40 mg Documented by: Polyethylene Glycol (Miralax) 17 gm PO DAILY PRN PRN Reason: Constipation Last Admin: 05/09/20 10:27 Dose: 17 gm Documented by: Fluticasone/Salmeterol (Advair Diskus 250-50) 1 puff INH BID [facility] Last Admin: 05/09/20 09:53 Dose: 1 puff Documented by: Sodium Chloride (Saline Flush) 10 ml FLUSH ASDIRECTED PRN PRN Reason: Keep Vein Open Sodium Chloride (Saline Flush) 2.5 ml FLUSH ASDIRECTED PRN PRN Reason: Keep Vein Open Sodium Chloride (Normal Saline) 10 ml IV ASDIRECTED PRN PRN Reason: IV Use Sodium Chloride ([place] Nasal [place]) 0 ml BRAEDEN Q4H PRN PRN Reason: DRY NOSE Last Admin: 05/08/20 08:57 Dose: 1 spray Documented by: Tamsulosin HCl (Flomax) 0.8 mg PO BEDTIME [facility] Last Admin: 05/08/20 17:54 Dose: 0.8 mg Documented by: Tiotropium [place] (Spiriva Handihaler) 18 mcg INH DAILY [facility] Last Admin: 05/09/20 09:52 Dose: 1 canister Documented by: Discontinued Medications Albuterol (Ventolin Hfa) 0 gm INH Q4H PRN PRN Reason: Wheezing Albuterol/Ipratropium (Duoneb 3.0-0.5 Mg/3 Ml) 3 ml NEB ONETIME ONE Stop: 05/06/20 12:54 Last Admin: 05/06/20 13:02 Dose: 3 ml Documented by: Albuterol/Ipratropium (Duoneb 3.0-0.5 Mg/3 Ml) Confirm Administered Dose 3 ml .ROUTE .STK-MED ONE Stop: 05/06/20 13:01 Last Admin: 05/06/20 17:23 Dose: Not Given Documented by: Albuterol/Ipratropium (Duoneb 3.0-0.5 Mg/3 Ml) 3 ml NEB Q4HRRT PRN PRN Reason: Shortness Of Breath/wheezing Cefazolin Sodium (Ancef) Confirm Administered Dose 2 gm .ROUTE .STK-MED ONE Stop: 05/06/20 13:56 Diphenhydramine/Nystatin/Lidocaine (Magic Mouthwash) 0 ml PO QID PRN PRN Reason: Sore Throat Fentanyl (Sublimaze) Confirm Administered Dose 100 mcg .ROUTE .STK-MED ONE Stop: 05/06/20 13:46 Fentanyl (Sublimaze) Confirm Administered Dose 100 mcg .ROUTE .STK-MED ONE Stop: 05/06/20 14:19 Glycopyrrolate (Robinul) Confirm Administered Dose 0.2 mg .ROUTE .STK-MED ONE Stop: 05/06/20 14:17 Hydromorphone HCl (Dilaudid) 1 mg IVPUSH ONETIME ONE Stop: 05/08/20 08:41 Last Admin: 05/08/20 09:25 Dose: 1 mg Documented by: Lactated Ringer's (Ringers, Lactated) 1,000 mls @ 100 mls/hr IV ASDIRECTED [facility] Last Admin: 05/06/20 13:11 Dose: 100 mls/hr Documented by: Cefazolin Sodium/Dextrose 2 gm (/ Premix) 50 mls @ 100 mls/hr IV ONCALL ONE Stop: 05/06/20 09:10 Last Admin: 05/06/20 17:53 Dose: Not Given Documented by: Sodium Chloride (Normal Saline) Confirm Administered Dose 20 mls @ as directed .ROUTE .STK-MED ONE Stop: 05/06/20 13:56 Levofloxacin/Dextrose 750 mg/ (Premix) 150 mls @ 100 mls/hr IV Q24H [facility] Last Admin: 05/06/20 23:57 Dose: Not Given Documented by: Levofloxacin/Dextrose 750 mg/ (Premix) 150 mls @ 100 mls/hr IV Q48H [facility] Lactated Ringer's (Ringers, Lactated) 500 mls @ 999 mls/hr IV ONETIME ONE Stop: 05/08/20 17:59 Last Admin: 05/08/20 17:48 Dose: 999 mls/hr Documented by: Lactated Ringer's (Ringers, Lactated) 500 mls @ 999 mls/hr IV NOW STA Stop: 05/09/20 10:49 Last Admin: 05/09/20 10:33 Dose: 999 mls/hr Documented by: Iopamidol (Isovue-M 200 (41%)) Confirm Administered Dose 20 ml .ROUTE .STK-MED ONE Stop: 05/06/20 13:49 Ketorolac Tromethamine (Toradol) Confirm Administered Dose 30 mg .ROUTE .STK-MED ONE Stop: 05/06/20 14:53 Midazolam HCl (Versed 1 Mg/Ml) Confirm Administered Dose 2 mg .ROUTE .STK-MED ONE Stop: 05/06/20 13:47 Morphine Sulfate (Morphine) 2 mg IVPUSH Q4H PRN PRN Reason: Pain (severe 7-10) Stop: 05/07/20 19:48 Morphine Sulfate (Morphine) 1 mg IVPUSH Q3H PRN PRN Reason: Pain Last Admin: 05/08/20 12:41 Dose: 1 mg Documented by: Ondansetron HCl (Zofran) Confirm Administered Dose 4 mg .ROUTE .STK-MED ONE Stop: 05/06/20 13:47 Propofol (Diprivan 20 Ml) Confirm Administered Dose 400 mg .ROUTE .STK-MED ONE Stop: 05/06/20 13:46 Propofol (Diprivan 20 Ml) Confirm Administered Dose 200 mg .ROUTE .STK-MED ONE Stop: 05/06/20 14:13 Propofol (Diprivan 20 Ml) Confirm Administered Dose 200 mg .ROUTE .STK-MED ONE Stop: 05/06/20 14:19 Propofol (Diprivan 20 Ml) Confirm Administered Dose 200 mg .ROUTE .STK-MED ONE Stop: 05/06/20 14:36 - Exam General: Reports: Alert, Oriented Lungs: Reports: Clear to Auscultation, Normal Respiratory Effort Cardiovascular: Reports: Regular Rate GI/Abdominal Exam: Normal Bowel Sounds. No: Guarding Back Exam: Reports: CVA Tenderness (L) Psy/Mental Status: Reports: Alert <Joanna Thomas - Last Filed: 05/11/20 13:17> Discharge Summary - Hospital Course Free Text/Narrative:: I have seen and evaluated the patient. I have discussed findings and treatment plan with resident. I agree with the assessment and plan in the following note. Diagnosis: Stroke: No - Discharge Data Discharge Date: 05/09/20 - Referral to Home Health Primary Care Physician: PCP None - Discharge Diagnosis/Problem(s) (1) Ureteral stone SNOMED Code(s): 21154682 ICD Code: N20.1 - CALCULUS OF URETER Status: Acute (2) COPD (chronic obstructive pulmonary disease) SNOMED Code(s): 47856773 ICD Code: J44.9 - CHRONIC OBSTRUCTIVE PULMONARY DISEASE, UNSPECIFIED Statu s: Acute (3) HTN (hypertension) SNOMED Code(s): 58325019 ICD Code: I10 - ESSENTIAL (PRIMARY) HYPERTENSION Status: Acute (4) Acute hypoxemic respiratory failure SNOMED Code(s): 142407077 ICD Code: J96.01 - ACUTE RESPIRATORY FAILURE WITH HYPOXIA Status: Acute (5) BPH (benign prostatic hyperplasia) SNOMED Code(s): 493291755 ICD Code: N40.0 - BENIGN PROSTATIC HYPERPLASIA WITHOUT LOWER URINRY TRACT SYMP Status: Acute (6) HLD (hyperlipidemia) SNOMED Code(s): 51092419 ICD Code: E78.5 - HYPERLIPIDEMIA, UNSPECIFIED Status: Acute (7) Pneumonia SNOMED Code(s): 922037949 ICD Code: J18.9 - PNEUMONIA, UNSPECIFIED ORGANISM Status: Acute - Patient Summary/Data Consults: Consultations 05/08/20 16:29 Consult to Physician [CONS] Routine 05/09/20 19:36 PT Evaluation and Treatment [CONS] Routine - Discharge Summary/Plan Comment DC Time >30 min.: Yes (arrnaging transfer) - Patient Data Vitals - Most Recent: Last Vital Signs Temp 36.9 C 05/09/20 18:01 Pulse 90 05/09/20 18:01 Resp 20 05/09/20 18:01 BP 124/68 05/09/20 18:01 Pulse Ox 90 L 05/09/20 18:01 Med Orders - Current: Current Medications Discontinued Medications Acetaminophen (Tylenol) 650 mg PO Q4H PRN PRN Reason: Pain (Mild 1-3)/fever Albuterol (Ventolin Hfa) 0 gm INH Q4H PRN PRN Reason: Wheezing Albuterol/Ipratropium (Duoneb 3.0-0.5 Mg/3 Ml) 3 ml NEB ONETIME ONE Stop: 05/06/20 12:54 Last Admin: 05/06/20 13:02 Dose: 3 ml Documented by: Albuterol/Ipratropium (Duoneb 3.0-0.5 Mg/3 Ml) Confirm Administered Dose 3 ml .ROUTE .STK-MED ONE Stop: 05/06/20 13:01 Last Admin: 05/06/20 17:23 Dose: Not Given Documented by: Albuterol/Ipratropium (Duoneb 3.0-0.5 Mg/3 Ml) 3 ml NEB Q4HRRT PRN PRN Reason: Shortness Of Breath/wheezing Albuterol/Ipratropium (Duoneb 3.0-0.5 Mg/3 Ml) 3 ml NEB Q4HRRT PRN PRN Reason: Shortness of Breath Albuterol/Ipratropium (Duoneb 3.0-0.5 Mg/3 Ml) 3 ml NEB Q4HRRT [facility] Last Admin: 05/09/20 18:00 Dose: 3 ml Documented by: Atorvastatin Calcium (Lipitor) 20 mg PO BEDTIME [facility] Last Admin: 05/08/20 21:17 Dose: 20 mg Documented by: Benzocaine/Menthol (Cepacol Sore Throat) 1 lozenge MUCMEM Q4H PRN PRN Reason: Sore Throat Last Admin: 05/08/20 05:29 Dose: 1 lozenge Documented by: Cefazolin Sodium (Ancef) Confirm Administered Dose 2 gm .ROUTE .STK-MED ONE Stop: 05/06/20 13:56 Diphenhydramine/Nystatin/Lidocaine (Magic Mouthwash) 0 ml PO QID PRN PRN Reason: Sore Throat Diphenhydramine/Nystatin/Lidocaine (Magic Mouthwash) 15 ml PO QID PRN PRN Reason: Sore Throat Docusate Sodium (Colace) 100 mg PO BID [facility] Last Admin: 05/09/20 09:24 Dose: 100 mg Documented by: Fentanyl (Sublimaze) Confirm Administered Dose 100 mcg .ROUTE .STK-MED ONE Stop: 05/06/20 13:46 Fentanyl (Sublimaze) Confirm Administered Dose 100 mcg .ROUTE .STK-MED ONE Stop: 05/06/20 14:19 Glycopyrrolate (Robinul) Confirm Administered Dose 0.2 mg .ROUTE .STK-MED ONE Stop: 05/06/20 14:17 Hydromorphone HCl (Dilaudid) 1 mg IVPUSH ONETIME ONE Stop: 05/08/20 08:41 Last Admin: 05/08/20 09:25 Dose: 1 mg Documented by: Hydromorphone HCl (Dilaudid) 1 mg IVPUSH Q4H PRN PRN Reason: Pain (severe 7-10) Last Admin: 05/09/20 18:00 Dose: 1 mg Documented by: Lactated Ringer's (Ringers, Lactated) 1,000 mls @ 100 mls/hr IV ASDIRECTED [facility] Last Admin: 05/06/20 13:11 Dose: 100 mls/hr Documented by: Cefazolin Sodium/Dextrose 2 gm (/ Premix) 50 mls @ 100 mls/hr IV ONCALL ONE Stop: 05/06/20 09:10 Last Admin: 05/06/20 17:53 Dose: Not Given Documented by: Sodium Chloride (Normal Saline) Confirm Administered Dose 20 mls @ as directed .ROUTE .[facility] ONE Stop: 05/06/20 13:56 Lactated Ringer's (Ringers, Lactated) 1,000 mls @ 125 mls/hr IV ASDIRECTED [facility] Last Admin: 05/09/20 06:57 Dose: 125 mls/hr Documented by: Levofloxacin/Dextrose 750 mg/ (Premix) 150 mls @ 100 mls/hr IV Q24H [facility] Last Admin: 05/06/20 23:57 Dose: Not Given Documented by: Levofloxacin/Dextrose 750 mg/ (Premix) 150 mls @ 100 mls/hr IV Q48H [facility] Levofloxacin/Dextrose 750 mg/ (Premix) 150 mls @ 100 mls/hr IV Q48H [facility] Last Admin: 05/08/20 23:38 Dose: 100 mls/hr Documented by: Lactated Ringer's (Ringers, Lactated) 500 mls @ 999 mls/hr IV ONETIME ONE Stop: 05/08/20 17:59 Last Admin: 05/08/20 17:48 Dose: 999 mls/hr Documented by: Lactated Ringer's (Ringers, Lactated) 500 mls @ 999 mls/hr IV NOW STA Stop: 05/09/20 10:49 Last Admin: 05/09/20 10:33 Dose: 999 mls/hr Documented by: Sodium Chloride (Normal Saline) 1,000 mls @ 100 mls/hr IV ASDIRECTED [facility] Iopamidol (Isovue-M 200 (41%)) Confirm Administered Dose 20 ml .ROUTE .STK-MED ONE Stop: 05/06/20 13:49 Ketorolac Tromethamine (Toradol) Confirm Administered Dose 30 mg .ROUTE .STK-MED ONE Stop: 05/06/20 14:53 Lisinopril (Prinivil) 10 mg PO DAILY [facility] Last Admin: 05/09/20 09:24 Dose: 10 mg Documented by: Methylprednisolone Sodium Succinate (Solu-Medrol) 40 mg IVPUSH Q12H [facility] Last Admin: 05/09/20 08:52 Dose: 40 mg Documented by: Midazolam HCl (Versed 1 Mg/Ml) Confirm Administered Dose 2 mg .ROUTE .STK-MED ONE Stop: 05/06/20 13:47 Morphine Sulfate (Morphine) 2 mg IVPUSH Q4H PRN PRN Reason: Pain (severe 7-10) Stop: 05/07/20 19:48 Morphine Sulfate (Morphine) 1 mg IVPUSH Q3H PRN PRN Reason: Pain Last Admin: 05/08/20 12:41 Dose: 1 mg Documented by: Ondansetron HCl (Zofran) Confirm Administered Dose 4 mg .ROUTE .STK-MED ONE Stop: 05/06/20 13:47 Ondansetron HCl (Zofran) 4 mg IVPUSH Q4H PRN PRN Reason: Nausea/Vomiting Pantoprazole Sodium (Protonix) 40 mg PO DAILY [facility] Last Admin: 05/09/20 09:24 Dose: 40 mg Documented by: Polyethylene Glycol (Miralax) 17 gm PO DAILY PRN PRN Reason: Constipation Last Admin: 05/09/20 10:27 Dose: 17 gm Documented by: Propofol (Diprivan 20 Ml) Confirm Administered Dose 400 mg .ROUTE .STK-MED ONE Stop: 05/06/20 13:46 Propofol (Diprivan 20 Ml) Confirm Administered Dose 200 mg .ROUTE .STK-MED ONE Stop: 05/06/20 14:13 Propofol (Diprivan 20 Ml) Confirm Administered Dose 200 mg .ROUTE .STK-MED ONE Stop: 05/06/20 14:19 Propofol (Diprivan 20 Ml) Confirm Administered Dose 200 mg .ROUTE .STK-MED ONE Stop: 05/06/20 14:36 Fluticasone/Salmeterol (Advair Diskus 250-50) 1 puff INH BID [facility] Last Admin: 05/09/20 09:53 Dose: 1 puff Documented by: Sodium Chloride (Saline Flush) 10 ml FLUSH ASDIRECTED PRN PRN Reason: Keep Vein Open Sodium Chloride (Saline Flush) 2.5 ml FLUSH ASDIRECTED PRN PRN Reason: Keep Vein Open Sodium Chloride (Normal Saline) 10 ml IV ASDIRECTED PRN PRN Reason: IV Use Sodium Chloride ([place] Nasal [place]) 0 ml BRAEDEN Q4H PRN PRN Reason: DRY NOSE Last Admin: 05/08/20 08:57 Dose: 1 spray Documented by: Tamsulosin HCl (Flomax) 0.8 mg PO BEDTIME [facility] Last Admin: 05/08/20 17:54 Dose: 0.8 mg Documented by: Tiotropium [place] (Spiriva Handihaler) 18 mcg INH DAILY [facility] Last Admin: 05/09/20 09:52 Dose: 1 canister Documented by:
[2020-05-09] MEDS ORDERED: Sodium Chloride 0.9% 1,000 ML IV SCH (19:45)
== END 2020-05-09 18:00 ==
LOC: MW.SDS 12:32 → MW.MS 17:11 → MW.SDS 19:49
PROVIDERS: ADMIT Student in an Organized Health Care Education/Training Program; ATTEND Student in an Organized Health Care Education/Training Program
DX: N13.2 Hydronephrosis with renal and ureteral calculous obstruction (principal); J96.01 Acute respiratory failure with hypoxia; D35.01 Benign neoplasm of right adrenal gland; D35.02 Benign neoplasm of left adrenal gland; J44.9 Chronic obstructive pulmonary disease, unspecified; J18.9 Pneumonia, unspecified organism; N40.0 Benign prostatic hyperplasia without lower urinary tract symptoms; I10 Essential (primary) hypertension; E78.00 Pure hypercholesterolemia, unspecified; I71.4 Abdominal aortic aneurysm, without rupture; E66.9 Obesity, unspecified; Z68.39 Body mass index [BMI] 39.0-39.9, adult; Z01.812 Encounter for preprocedural laboratory examination; Z20.822 Contact with and (suspected) exposure to COVID-19; F17.210 Nicotine dependence, cigarettes, uncomplicated; Z79.899 Other long term (current) drug therapy; Z98.890 Other specified postprocedural states
CPT/HCPCS: 36415; 52332; 71045; 74176; 76000; 80048; 83735; 84100; 85025; 94640; 96365; 96366; 96375; 96376; A9270; C1769; G0378; J0690; J1170; J1885; J1956; J2250; J2270; J2405; J2704; J2920; J3010; J3490; J7120; Q9966; U0002; 00910; J7620-GY

== ENCOUNTER 2020-05-30 01:43 | Observation (INO) | payer MEDICARE, OTHER ==
[2020-05-30] MEDS ORDERED: fentaNYL 50 MCG/ML SDV IVPUSH ONE ×2 (02:13→04:13)
[2020-05-30] MEDS ORDERED: Sodium Chloride 0.9% 2.5 ML Syringe FLUSH PRN (02:13)
[2020-05-30] MEDS ORDERED: Sodium Chloride 0.9% 10 ML Syringe FLUSH PRN (02:13)
[2020-05-30] MEDS ORDERED: Ketorolac 15 MG/ML SDV IVPUSH ONE (02:13)
[2020-05-30] MEDS ORDERED: Ondansetron 4 MG/2 ML SDV IVPUSH ONE (02:13)
[2020-05-30] MEDS ORDERED: Sodium Chloride 0.9% 1,000 ML IV ONE ×2 (02:13→04:32)
[2020-05-30 02:49] LABS: BLOOD UREA NITROGEN,BUN 17 mg/dL (7.0-18.0); CARBON DIOXIDE,CO2 26.2 mmol/L (21.0-32.0); CHLORIDE,CL 106 mmol/L (98-107); GLUCOSE RANDOM 132 mg/dL (74-106); LIPASE 133 U/L (73-393); POTASSIUM,K 4.1 mmol/L (3.5-5.1); SODIUM,NA 141 mmol/L (136-148)
--- NOTE | 2020-05-30 03:36 | US ---
INDICATION: Right upper quadrant pain, vomiting TECHNIQUE: Ultrasound abdomen limited. Sonographic images of the right upper quadrant were obtained using avelar-scale and color Doppler images. COMPARISON: 05/09/2020 FINDINGS: Liver: The liver parenchyma is normal in echotexture. Gallbladder: Multiple echogenic gallstones are present within the gallbladder with no evidence of cholecystitis at this time. The gallbladder wall is normal in appearance. No pericholecystic fluid is present. No sonographic Vacherie sign is present. Common bile duct: 2 mm. No intrahepatic biliary ductal dilatation seen. Pancreas: The visualized portions of the pancreatic head and body are normal in appearance. Right Kidney: 11.4 cm. No hydronephrosis or ureterectasis is seen. Vascular: An abdominal aortic aneurysm is present which measures 4.4 cm on image 8. The visualized portal vein is patent with normal anterograde flow. IMPRESSIONS: 1. Multiple echogenic gallstones are present within the gallbladder with no evidence of cholecystitis at this time. 2. An abdominal aortic aneurysm is present which measures 4.4 cm on image 8. this measurement may be artifactually accentuated since recent CT shows an infrarenal abdominal aortic aneurysm that measures 3.4 cm. Dictated by Jak Menendez MD @ 05/30/2020 3:34:08 AM Dictated by: Jak Menendez MD @ 05/30/2020 03:34:11 (Electronically Signed)
--- NOTE | 2020-05-30 04:23 | EDM.PDOC ---
ED HPI GENERAL MEDICAL PROBLEM - General Chief Complaint: Abdominal Pain Stated Complaint: STOMACK PAIN,VOMITNG Time Seen by Provider: 05/30/20 02:13 - History of Present Illness INITIAL COMMENTS - FREE TEXT/NARRATIVE: HISTORY AND PHYSICAL: History of present illness: This is a 74-year-old gentleman with a history significant for COPD, recent ureteral stone requiring a urostomy tube, who presents ER today complaining of right upper quadrant pain radiating to his back this evening. Patient reports that he went to an ER earlier today secondary to the pain. He reports that they gave him IV fluids and checked his blood tests and told that he likely had gallbladder disease. He reports that they ER was small and they were unable to do an ultrasound to definitively diagnose whether or not he had gallbladder disease. Patient reports after going home he was still experiencing severe pain and discomfort so they drove here, approximately 2 hours away for further evaluation and assistance with your pain. Upon arrival to the ED, the patient denied any jaundice. Patient reports he been having nausea and vomiting. Patient reports that the pain started this evening after eating. Patient denies any prior episodes or further issues with his gallbladder in the past. Patient denies any recent fevers, shakes, chills. Patient denies any diarrhea. Patient denies any chest pain or shortness of breath. Patient denies any melena or bright red blood per rectum. Patient denies any coffee-ground emesis or hematemesis. Patient reports he had some bilious vomiting. Review of systems: As per history of present illness and below otherwise all systems reviewed and negative. Past medical history: As per history of present illness and as reviewed below otherwise noncontributory. Surgical history: As per history of present illness and as reviewed below otherwise noncontributory. Social history: No reported history of drug or alcohol abuse. Family history: As per history of present illness and as reviewed below otherwise noncontributory. Physical exam: This patient was seen and evaluated during the 2019 SARS-CoV-2 novel coronavirus pandemic period. Community viral transmission is ongoing at time of this encounter and the emergency department is operating under pandemic response procedures. Constitutional: Patient is oriented to person, place, and time. Appears well- developed and well-nourished. No distress. HEENT: Moist mucous membranes Head: Normocephalic and atraumatic Eyes: Right eye exhibits no discharge. Left eye exhibits no discharge. No scleral icterus Neck: Normal range of motion. No tracheal deviation present. Cardiovascular: Normal rate and regular rhythm. Pulmonary: Effort normal, no respiratory distress. Abd: Soft, nondistended, no rebound/guarding, no psoas or obturator signs, no tenderness at Mcberney's point, no Marina's sign. Pt does not present with an exam that would be consistent with an acute surgical abdomen at this time. Mild to moderate tenderness to palpation in the right upper quadrant and right flank region. Musculoskeletal: Normal range of motion Neurologic: Alert and oriented to person, place and time. Skin: [place], warm and dry. Psychiatric: Normal mood and affect. Behavior is normal. Judgment and thought content normal. Nursing note and vital signs have been reviewed Diagnostics: Ultrasound reveals multiple stones. Multiple echogenic gall stones are present within the gallbladder with no evidence of cholecystitis at this time. The common bile duct was 2 mm with no intrahepatic biliary ductal dilatation. No pericholecystic fluid is present and no evidence of evidence of a sonographic Marina sign was present. Therapeutics: Fentanyl 100 mics IV, Toradol 15 mg IV, Zofran 4 IV. Patient reports significant improvement in pain and discomfort however approximately 1 hour after receiving his medication patient had further episodes of nausea and vomiting secondary to recurrence of his abdominal pain. Patient is given another dose of fentanyl 100 mics. Patient is still having discomfort. Assessment and plan: This is a 74-year-old gentleman who presents to the ER today complaining of right upper quadrant abdominal pain. Patient's ultrasound reveals multiple gallstones. Patient's pain appears to be consistent with biliary colic. Patient currently has intractable pain and is requesting admission for surgical consultation. Case discussed with Dr. Adler and he is agreed to assist this with admitting patient observation for pain management and surgical consultation. Definitive disposition and diagnosis as appropriate pending reevaluation and review of above. RUQ Pain Score (Numeric/FACES): 8 - Related Data Allergies Allergy/AdvReac Type Severity Reaction Status Date / Time No Known Allergies Allergy Verified 05/30/20 02:15 Home Meds: Home Meds Albuterol Sulfate [Albuterol Sulfate HFA] 2 puff INH Q4H PRN 05/06/20 [History] Fluticasone Propion/Salmeterol [Advair 250-50 Diskus] 1 inhalation INH BID 03/05/21 [History] Tiotropium [Spiriva HandiHaler] 1 cap INH DAILY 05/06/20 [History] atorvaSTATin Calcium [Atorvastatin Calcium] 20 mg PO DAILY 05/06/20 [History] lisinopriL [Lisinopril] 10 mg PO DAILY 05/06/20 [History] Past Medical History HEENT History: Reports: Other (See Below) Other HEENT History: wears glasses, top denture Cardiovascular History: Reports: Aneurysm, High Cholesterol, Hypertension Other Cardiovascular History: AAA, gets checked every 6 months, last time 6 months ago 4.2 cm Respiratory History: Reports: COPD Gastrointestinal History: Reports: None Genitourinary History: Reports: BPH, Renal Calculus Other Genitourinary History: presently has kidney stone Musculoskeletal History: Reports: Arthritis Neurological History: Reports: None Psychiatric History: Reports: None Endocrine/Metabolic History: Reports: Obesity/BMI 30+ Hematologic History: Reports: None Immunologic History: Reports: None Oncologic (Cancer) History: Reports: None Dermatologic History: Reports: None - Past Surgical History Head Surgeries/Procedures: Reports: None HEENT Surgical History: Reports: Cataract Surgery, Tonsillectomy Cardiovascular Surgical History: Reports: None Respiratory Surgical History: Reports: None GI Surgical History: Reports: None Male Surgical History: Reports: None Endocrine Surgical History: Reports: None Neurological Surgical History: Reports: None Musculoskeletal Surgical History: Reports: None Oncologic Surgical History: Reports: None Dermatological Surgical History: Reports: Skin Biopsy Social & Family History - Family History Family Medical History: No Pertinent Family History - Caffeine Use Caffeine Use: Reports: Coffee ED ROS GENERAL - Review of Systems Review Of Systems: See Below ED EXAM, GENERAL - Physical Exam Exam: See Below Course - Vital Signs Last Recorded V/S: Last Vital Signs Temp 97.0 F 05/30/20 02:12 Pulse 82 05/30/20 02:12 Resp 18 05/30/20 02:12 BP 149/76 H 05/30/20 02:12 Pulse Ox 91 L 05/30/20 02:12 - Orders/Labs/Meds Orders: Active Orders 24 hr Category Date Time Status Patient Status [ADT] Routine ADT 05/30/20 04:31 Ordered UA W/KARLA RFLX IF INDICATED [URIN] Stat Lab 05/30/20 02:14 Ordered Sodium Chloride 0.9% [Normal Saline] 1,000 ml Med 05/30/20 04:32 Ordered IV .Bolus Sodium Chloride 0.9% [Saline Flush] Med 05/30/20 02:13 Active 10 ml FLUSH ASDIRECTED PRN Sodium Chloride 0.9% [Saline Flush] Med 05/30/20 02:13 Active 2.5 ml FLUSH ASDIRECTED PRN Saline Lock Insert [OM.PC] Stat Oth 05/30/20 02:13 Ordered Medication Orders Sodium Chloride (Normal Saline) 1,000 mls @ 100 mls/hr IV .Bolus ONE Stop: 05/30/20 14:31 Sodium Chloride (Sodium Chloride 0.9% 10 Ml Syringe) 10 ml FLUSH ASDIRECTED PRN PRN Reason: Keep Vein Open Last Admin: 05/30/20 02:32 Dose: 10 ml Documented by: AVERY Sodium Chloride (Sodium Chloride 0.9% 2.5 Ml Syringe) 2.5 ml FLUSH ASDIRECTED PRN PRN Reason: Keep Vein Open Last Admin: 05/30/20 02:32 Dose: 2.5 ml Documented by: AVERY Labs: Laboratory Tests 05/30/20 05/30/20 05/30/20 Range/Units 02:01 02:01 02:39 WBC 12.33 H (4.0-11.0) K/uL RBC 4.07 L (4.50-5.90) M/uL Hgb 12.3 L (13.0-17.0) g/dL Hct 36.7 L (38.0-50.0) % MCV 90.2 (80.0-98.0) fL MCH 30.2 (27.0-32.0) pg MCHC 33.5 (31.0-37.0) g/dL RDW Std Deviation 43.3 (28.0-62.0) fl RDW Coeff of Wilfredo 13 (11.0-15.0) % Plt Count 268 (150-400) K/uL MPV 9.20 (7.40-12.00) fL Neut % (Auto) 80.6 H (48.0-80.0) % Lymph % (Auto) 12.9 L (16.0-40.0) % Reagan % (Auto) 5.1 (0.0-15.0) % Eos % (Auto) 1.2 (0.0-7.0) % Baso % (Auto) 0.2 (0.0-1.5) % Neut # (Auto) 9.9 H (1.4-5.7) K/uL Lymph # (Auto) 1.6 (0.6-2.4) K/uL Reagan # (Auto) 0.6 (0.0-0.8) K/uL Eos # (Auto) 0.2 (0.0-0.7) K/uL Baso # (Auto) 0.0 (0.0-0.1) K/uL Sodium 141 (136-148) mmol/L Potassium 4.1 (3.5-5.1) mmol/L Chloride 106 (98-107) mmol/L Carbon Dioxide 26.2 (21.0-32.0) mmol/L BUN 17 (7.0-18.0) mg/dL Creatinine 1.1 (0.8-1.3) mg/dL Est Cr Clr Drug Dosing 58.99 mL/min Estimated GFR (MDRD) > 60.0 ml/min Glucose 132 H (74-106) mg/dL Calcium 8.5 (8.5-10.1) mg/dL Total Bilirubin 0.5 (0.2-1.0) mg/dL AST 11 L (15-37) IU/L ALT 42 (14-63) IU/L Alkaline Phosphatase 87 (46-116) U/L Total Protein 6.6 (6.4-8.2) g/dL Albumin 3.3 L (3.4-5.0) g/dL Globulin 3.3 (2.6-4.0) g/dL Albumin/Globulin Ratio 1.0 (0.9-1.6) Lipase 133 (73-393) U/L SARS-CoV-2 RNA (AMY) NEGATIVE (NEGATIVE) Meds: Medications Generic Name Dose Route Start Last Admin Trade Name Freq PRN Reason Stop Dose Admin Sodium Chloride 1,000 mls @ 100 mls/hr 05/30/20 04:32 Normal Saline IV 05/30/20 14:31 .Bolus ONE Sodium Chloride 10 ml 05/30/20 02:13 05/30/20 02:32 Sodium Chloride 0.9% 10 Ml Syringe FLUSH 10 ml ASDIRECTED PRN Administration Keep Vein Open Sodium Chloride 2.5 ml 05/30/20 02:13 05/30/20 02:32 Sodium Chloride 0.9% 2.5 Ml Syringe FLUSH 2.5 ml ASDIRECTED PRN Administration Keep Vein Open Discontinued Medications Generic Name Dose Route Start Last Admin Trade Name Freq PRN Reason Stop Dose Admin Fentanyl 100 mcg 05/30/20 02:13 05/30/20 02:28 Fentanyl 50 Mcg/Ml Sdv IVPUSH 05/30/20 02:14 100 mcg ONETIME ONE Administration Fentanyl 100 mcg 05/30/20 04:13 05/30/20 04:21 Fentanyl 50 Mcg/Ml Sdv IVPUSH 05/30/20 04:14 100 mcg ONETIME ONE Administration Sodium Chloride 1,000 mls @ 999 mls/hr 05/30/20 02:13 05/30/20 02:26 Normal Saline IV 05/30/20 03:13 999 mls/hr .Bolus ONE Administration Ketorolac Tromethamine 15 mg 05/30/20 02:13 05/30/20 02:26 Ketorolac 15 Mg/Ml Sdv IVPUSH 05/30/20 02:14 15 mg ONETIME ONE Administration Ondansetron HCl 4 mg 05/30/20 02:13 05/30/20 02:25 Ondansetron 4 Mg/2 Ml Sdv IVPUSH 05/30/20 02:14 4 mg ONETIME ONE Administration Departure - Departure Time of Disposition: 04:37 Disposition: Refer to Observation Condition: Good Clinical Impression: Biliary colic - Discharge Information Referrals: PCP,None [Primary Care Provider] - Forms: ED Department Discharge Sepsis Event Note (ED) - Evaluation Sepsis Screening Result: No Definite Risk - Focused Exam Vital Signs: Vital Signs Temp Pulse Resp BP Pulse Ox 05/30/20 02:12 97.0 F 82 18 149/76 H 91 L - My Orders Last 24 Hours: My Active Orders 05/30/20 02:13 Sodium Chloride 0.9% [Saline Flush] 10 ml FLUSH ASDIRECTED PRN Sodium Chloride 0.9% [Saline Flush] 2.5 ml FLUSH ASDIRECTED PRN Saline Lock Insert [OM.PC] Stat 05/30/20 02:14 UA W/KARLA RFLX IF INDICATED [URIN] Stat 05/30/20 04:31 Patient Status [ADT] Routine 05/30/20 04:32 Sodium Chloride 0.9% [Normal Saline] 1,000 ml IV .Bolus - Assessment/Plan Last 24 Hours: My Active Orders 05/30/20 02:13 Sodium Chloride 0.9% [Saline Flush] 10 ml FLUSH ASDIRECTED PRN Sodium Chloride 0.9% [Saline Flush] 2.5 ml FLUSH ASDIRECTED PRN Saline Lock Insert [OM.PC] Stat 05/30/20 02:14 UA W/KARLA RFLX IF INDICATED [URIN] Stat 05/30/20 04:31 Patient Status [ADT] Routine 05/30/20 04:32 Sodium Chloride 0.9% [Normal Saline] 1,000 ml IV .Bolus
[2020-05-30] MEDS ORDERED: Albuterol 8 GM Inhaler INH PRN (07:50)
[2020-05-30] MEDS ORDERED: Acetaminophen/oxyCODONE 325-5 MG Tab PO PRN (08:00)
[2020-05-30] MEDS: atorvaSTATin 20 MG Tab PO SCH (08:09)
[2020-05-30] MEDS: Pantoprazole 40 MG in Sodium Chloride 0.9% 10 ML IV SCH (08:09)
[2020-05-30] MEDS: Fluticasone/Salmeterol 250-50 MCG Inhalation Powder 14/Diskus INH SCH ×2 (08:10→21:09)
[2020-05-30] MEDS ORDERED: Morphine 4 MG/ML Syringe IVPUSH PRN (08:58)
[2020-05-30] MEDS ORDERED: Ondansetron 4 MG/2 ML SDV IVPUSH SCH (09:15)
[2020-05-30] MEDS: Lactated Ringers 1,000 ML IV SCH (09:16)
[2020-05-30] MEDS: Lisinopril 10 MG Tab PO SCH (09:18)
[2020-05-30] MEDS: Tamsulosin 0.4 MG Cap.ER PO SCH (09:19)
[2020-05-30] MEDS: Tiotropium Inhaler 18 MCG Inhalation Powder Cap Kit of 5 INH SCH (09:24)
--- NOTE | 2020-05-30 09:37 | PCM.SN.2 ---
- Free Text/Narrative Note: pt seen, chart reviewed; symptomatic gall stones vs cholecystitis; repeat blood work, ct a/p w iv/po contrast; await study resuls
--- NOTE | 2020-05-30 09:46 | PCM.SN.2 ---
- Free Text/Narrative Note: [id number]; await ct results
[2020-05-30 09:58] LABS: BLOOD UREA NITROGEN,BUN 17 mg/dL (7.0-18.0); CHLORIDE,CL 107 mmol/L (98-107); GLUCOSE RANDOM 123 mg/dL (74-106); LIPASE 95 U/L (73-393); POTASSIUM,K 4.3 mmol/L (3.5-5.1); SODIUM,NA 139 mmol/L (136-148)
[2020-05-30] MEDS ORDERED: cefOXitin 2 GM in Premix Bag 1 BAG IV ONE (10:38)
[2020-05-30] MEDS ORDERED: Bupivacaine 25%/EPINEPHrine/PF 30 ML ONE (11:18)
[2020-05-30] MEDS ORDERED: Octyl 2-Cyanoacrylate 1 Tube ONE (11:18)
[2020-05-30] MEDS ORDERED: Sugammadex Sodium 200 MG/2 ML VIAL ONE (11:52)
[2020-05-30] MEDS ORDERED: Iopamidol 755 MG/ML 500 ML Multipack Bottle IVPUSH STA (11:58)
[2020-05-30] MEDS ORDERED: Propofol 200 MG/20 ML SDV ONE (12:10)
[2020-05-30] MEDS ORDERED: Ondansetron 4 MG/2 ML SDV ONE (12:10)
[2020-05-30] MEDS ORDERED: fentaNYL 100 MCG/2 ML SDV ONE ×2 (12:10→13:17)
[2020-05-30] MEDS ORDERED: Dexamethasone 4 MG/ML 5 ML MDV ONE (12:11)
[2020-05-30] MEDS ORDERED: Glycopyrrolate 0.2 MG/ML SDV ONE (12:11)
[2020-05-30] MEDS ORDERED: Morphine 10 MG/ML Syringe ONE (12:11)
[2020-05-30] MEDS ORDERED: Rocuronium Bromide 50 MG/5 ML Syringe ONE (12:11)
--- NOTE | 2020-05-30 12:58 | CT ---
INDICATION: Colicky abdominal pain. Right upper quadrant. TECHNIQUE: CT scan of the abdomen and pelvis with intravenous contrast. 100 cc nonionic. COMPARISON: Noncontrast CT scan of the abdomen and pelvis May 09, 2020. FINDINGS: Urinary tract: Interval placement of a left percutaneous nephrostomy with satisfactory positioning. Persistent stone in the proximal left ureter measuring 7 mm. Bladder shows no change unremarkable. No hydronephrosis of the right kidney or right renal calculus. Stable left renal cyst. Liver and gallbladder: No change. 2 cm faintly calcified stone in the gallbladder. Adrenal glands: Bilateral adrenal masses are present. The lesions measured low dense on the prior exam less than 10 Hounsfield units in the left adrenal. No change. Spleen and pancreas: No change unremarkable. GI tract: Unremarkable. Aorta: 3.4 centimeter fusiform lower abdominal aortic aneurysm no change. Normal caliber iliac arteries. No signs for dissection. Atherosclerotic plaque. Pelvis: Enlarged prostate with calcifications. Bladder unremarkable. No pathologic lymph node enlargement. Skeletal: Old right rib fracture deformities. Small rounded sclerotic focus T11 vertebral body no change likely a bone island. IMPRESSION: 1. Interval percutaneous left nephrostomy and stable 7 millimeter stone in the proximal left ureter with decompression of the left kidney. 2. 3.4 centimeters fusiform distal segment abdominal aortic aneurysm with no change and no signs for rupture. 3. 2 centimeter faintly calcified gallstone. No biliary dilatation. 4. Markedly enlarged prostate. 5. Stable bilateral enlarged low-dense adrenal glands could potentially represent bilateral multiple adrenal adenomas. 6. Images reviewed with the ordering surgeon Dr. Singletary, results discussed by telephone at 12:50 p.m. Please note that all CT scans at this facility use dose modulation, iterative reconstruction, and/or weight-based dosing when appropriate to reduce radiation dose to as low as reasonably achievable. Dictated by Jayson Mckeon MD @ May 30 2020 12:40PM Signed by Dr. Jayson Mckeon @ May 30 2020 12:56PM
[2020-05-30] MEDS ORDERED: Lidocaine 2% Jelly 30 ML Tube ONE (13:23)
--- NOTE | 2020-05-30 13:24 | PCM.SN.2 ---
- Free Text/Narrative Note: Pain increased, pt vomitted; and wbc increased; repeat CT infrarenal AAA 3.4, no change from previous scan 05/09/20; proceed with surgery; however, pt had BPH, may have problem with romeo insertion; if problem, would abort surgery and transfer to tertiary care center; pt and family member aware and concurred; rb dw pt re bleeding/infection/bile leak; pt concurrred and proceed
[2020-05-30] MEDS ORDERED: Midazolam 1 MG/ML 2 ML SDV ONE (13:32)
--- NOTE | 2020-05-30 13:41 | PCM.PREANE ---
Preanesthetic Assessment - Anesthesia/Transfusion/Family Hx Anesthesia History: Prior Anesthesia Without Reaction Family History of Anesthesia Reaction: No Transfusion History: No Prior Transfusion(s) Intubation History: Unknown - Review of Systems General: No Symptoms Pulmonary: No Symptoms, Other Cardiovascular: No Symptoms Gastrointestinal: No Symptoms Neurological: No Symptoms Other: Reports: None - Physical Assessment NPO Status Date: 05/30/20 Vital Signs: Last Vital Signs Temp 98.2 F 05/30/20 11:00 Pulse 96 05/30/20 11:00 Resp 16 05/30/20 11:00 BP 145/70 H 05/30/20 11:00 Pulse Ox 93 L 05/30/20 11:00 Height: 5 ft 10 in Weight: 562 lb 6.387 oz ASA Class: 2E Mental Status: Alert & Oriented x3 Airway Class: Mallampati = 2 Dentition: Reports: Dentures ROM/Head Extension: Limited/Partial Cardiovascular: Regular Rate - Lab Values: Laboratory Last Values WBC 13.56 K/uL (4.0-11.0) H 05/30/20 09:15 RBC 3.96 M/uL (4.50-5.90) L 05/30/20 09:15 Hgb 12.0 g/dL (13.0-17.0) L 05/30/20 09:15 Hct 36.0 % (38.0-50.0) L 05/30/20 09:15 MCV 90.9 fL (80.0-98.0) 05/30/20 09:15 MCH 30.3 pg (27.0-32.0) 05/30/20 09:15 MCHC 33.3 g/dL (31.0-37.0) 05/30/20 09:15 RDW Std Deviation 44.9 fl (28.0-62.0) 05/30/20 09:15 RDW Coeff of Wilfredo 14 % (11.0-15.0) 05/30/20 09:15 Plt Count 236 K/uL (150-400) 05/30/20 09:15 MPV 9.50 fL (7.40-12.00) 05/30/20 09:15 Neut % (Auto) 87.5 % (48.0-80.0) H 05/30/20 09:15 Lymph % (Auto) 6.8 % (16.0-40.0) L 05/30/20 09:15 [place] % (Auto) 5.5 % (0.0-15.0) 05/30/20 09:15 Eos % (Auto) 0.1 % (0.0-7.0) 05/30/20 09:15 Baso % (Auto) 0.1 % (0.0-1.5) 05/30/20 09:15 Neut # (Auto) 11.9 K/uL (1.4-5.7) H 05/30/20 09:15 Lymph # (Auto) 0.9 K/uL (0.6-2.4) 05/30/20 09:15 [place] # (Auto) 0.8 K/uL (0.0-0.8) 05/30/20 09:15 Eos # (Auto) 0.0 K/uL (0.0-0.7) 05/30/20 09:15 Baso # (Auto) 0.0 K/uL (0.0-0.1) 05/30/20 09:15 Nucleated RBC % 0.0 /100WBC 05/30/20 09:15 Nucleated RBCs # 0 K/uL 05/30/20 09:15 Sodium 139 mmol/L (136-148) 05/30/20 09:15 Potassium 4.3 mmol/L (3.5-5.1) 05/30/20 09:15 Chloride 107 mmol/L (98-107) 05/30/20 09:15 Carbon Dioxide 24.0 mmol/L (21.0-32.0) 05/30/20 09:15 BUN 17 mg/dL (7.0-18.0) 05/30/20 09:15 Creatinine 1.1 mg/dL (0.8-1.3) 05/30/20 09:15 Est Cr Clr Drug Dosing 58.99 mL/min 05/30/20 09:15 Estimated GFR (MDRD) > 60.0 ml/min 05/30/20 09:15 Glucose 123 mg/dL (74-106) H 05/30/20 09:15 Calcium 8.2 mg/dL (8.5-10.1) L 05/30/20 09:15 Total Bilirubin 0.7 mg/dL (0.2-1.0) 05/30/20 09:15 AST 10 IU/L (15-37) L 05/30/20 09:15 ALT 34 IU/L (14-63) 05/30/20 09:15 Alkaline Phosphatase 76 U/L (46-116) 05/30/20 09:15 Total Protein 6.2 g/dL (6.4-8.2) L 05/30/20 09:15 Albumin 3.1 g/dL (3.4-5.0) L 05/30/20 09:15 Globulin 3.1 g/dL (2.6-4.0) 05/30/20 09:15 Albumin/Globulin Ratio 1.0 (0.9-1.6) 05/30/20 09:15 Amylase 19 U/L (25-115) L 05/30/20 09:15 Lipase 95 U/L (73-393) 05/30/20 09:15 Urine Color YELLOW 05/30/20 06:50 Urine Appearance SLT CLOUDY 05/30/20 06:50 Urine pH 6.0 (5.0-8.0) 05/30/20 06:50 Ur Specific [place] >= 1.030 (1.001-1.035) 05/30/20 06:50 Urine Protein TRACE mg/dL (NEGATIVE) H 05/30/20 06:50 Urine Glucose (UA) NEGATIVE mg/dL (NEGATIVE) 05/30/20 06:50 Urine Ketones NEGATIVE mg/dL (NEGATIVE) 05/30/20 06:50 Urine Occult Blood TRACE-INTACT (NEGATIVE) H 05/30/20 06:50 Urine Nitrite NEGATIVE (NEGATIVE) 05/30/20 06:50 Urine Bilirubin NEGATIVE (NEGATIVE) 05/30/20 06:50 Urine Urobilinogen 0.2 EU/dL (<2.0) 05/30/20 06:50 Ur Leukocyte Esterase SMALL (NEGATIVE) H 05/30/20 06:50 Urine RBC 2-4 (0-2/HPF) 05/30/20 06:50 Urine WBC 45-50 (0-5/HPF) 05/30/20 06:50 Ur Epithelial Cells FEW (NONE-FEW) 05/30/20 06:50 Urine Bacteria FEW (NEGATIVE) 05/30/20 06:50 Urine Mucus MODERATE (NONE-MOD) 05/30/20 06:50 SARS-CoV-2 RNA (AMY) NEGATIVE (NEGATIVE) 05/30/20 02:39 - Allergies Allergies/Adverse Reactions: Allergies Allergy/AdvReac Type Severity Reaction Status Date / Time No Known Allergies Allergy Verified 05/30/20 07:47 - Acknowledgements Pt an Appropriate Candidate for the Planned Anesthesia: Yes Alternatives and Risks of Anesthesia Discussed w Pt/Guardian: Yes Pt/Guardian Understands and Agrees with Anesthesia Plan: Yes Additional Comments: npo after mn except for some CT CONTRAST DYE HTN NO MD, CP, CHF TOB 48 YEAR HX 1.5 PPD COPD ON DAILY INHALERS FOR 2 YEARS UPPER DENTURE MAL II VIEW PT IS HOARSE WHEN SPEAKING - STATES THIS ALL STARTED SINCE YESTERDAY AFTER EM ESIS AND COUGHING NO HX OF HOARSENESS PT HAD CYCSTOCOPY MAY 09, 2020 WITH APPARENT INJURY TO ONE OF HIS URETERS FOR STENT PLACEMENT - HAS NEPHROSTOMY TUBE IN PLACE NOW ANESTHETIC PLAN - UNDER SOME MINIMAL SEDATION TRY PLACEMENT OF SMALLER LOPEZ CATHETER - IF THAT IS SUCCESSFUL, WE WILL PROCEED WITH SURGERY, iF UNABLE TO PLACE LOPEZ, WILL CX SURGERY AND PT WILL BE TRANSFERRED TO ANOTHER FACILITY PAR NO QUESTIONS PreAnesthesia Questionnaire HEENT History: Reports: Other (See Below) Other HEENT History: wears glasses, top denture Cardiovascular History: Reports: Aneurysm, High Cholesterol, Hypertension Other Cardiovascular History: AAA, gets checked every 6 months, last time 6 mon ths ago 4.2 cm Respiratory History: Reports: COPD Gastrointestinal History: Reports: None Genitourinary History: Reports: BPH, Renal Calculus Other Genitourinary History: presently has kidney stone Musculoskeletal History: Reports: Arthritis Neurological History: Reports: None Psychiatric History: Reports: None Endocrine/Metabolic History: Reports: Obesity/BMI 30+ Hematologic History: Reports: None Immunologic History: Reports: None Oncologic (Cancer) History: Reports: None Dermatologic History: Reports: None - Infectious Disease History Infectious Disease History: Reports: Chicken Pox, Measles, Mumps - Past Surgical History Head Surgeries/Procedures: Reports: None HEENT Surgical History: Reports: Cataract Surgery, Tonsillectomy Cardiovascular Surgical History: Reports: None Respiratory Surgical History: Reports: None GI Surgical History: Reports: None Male Surgical History: Reports: None Endocrine Surgical History: Reports: None Neurological Surgical History: Reports: None Musculoskeletal Surgical History: Reports: None Oncologic Surgical History: Reports: None Dermatological Surgical History: Reports: Skin Biopsy - SUBSTANCE USE Tobacco Use Status *Q: Former Tobacco User Tobacco Use Within Last Twelve Months: No Recreational Drug Use History: No - HOME MEDS Home Medications: Home Meds Albuterol Sulfate [Albuterol Sulfate HFA] 2 puff INH Q4H PRN 05/06/20 [History] Fluticasone Propion/Salmeterol [Advair 250-50 Diskus] 1 inhalation INH BID 05/06/20 [History] Tiotropium [Spiriva HandiHaler] 1 cap INH DAILY 05/06/20 [History] atorvaSTATin Calcium [Atorvastatin Calcium] 20 mg PO DAILY 05/06/20 [History] lisinopriL [Lisinopril] 10 mg PO DAILY 05/06/20 [History] Tamsulosin HCl [Flomax] 0.4 mg PO DAILY 05/30/20 [History] - CURRENT (IN HOUSE) MEDS Current Meds: Current Medications Albuterol (Albuterol 8 Gm Inhaler) 2 gm INH Q4HRRT PRN PRN Reason: Wheezing Atorvastatin Calcium (Atorvastatin 20 Mg Tab) 20 mg PO DAILY [facility] Last Admin: 05/30/20 08:09 Dose: 20 mg Documented by: Sodium Chloride (Normal Saline) 1,000 mls @ 100 mls/hr IV .Bolus ONE Stop: 05/30/20 14:31 Last Admin: 05/30/20 05:39 Dose: 100 mls/hr Documented by: Lactated Ringer's (Ringers, Lactated) 1,000 mls @ 100 mls/hr IV ASDIRECTED [facility] Last Admin: 05/30/20 09:16 Dose: 100 mls/hr Documented by: Pantoprazole Sodium 40 mg/ (Sodium Chloride) 10 mls @ 300 mls/hr IV Q24H [facility] Last Admin: 05/30/20 08:09 Dose: 300 mls/hr Documented by: Lisinopril (Lisinopril 10 Mg Tab) 10 mg PO DAILY [facility] Last Admin: 05/30/20 09:18 Dose: 10 mg Documented by: Morphine Sulfate (Morphine 4 Mg/Ml Syringe) 3 mg IVPUSH Q6H PRN PRN Reason: Pain (severe 7-10) Last Admin: 05/30/20 09:13 Dose: 3 mg Documented by: Ondansetron HCl (Ondansetron 4 Mg/2 Ml Sdv) 4 mg IVPUSH Q8H [facility] Last Admin: 05/30/20 09:24 Dose: 4 mg Documented by: Oxycodone/Acetaminophen (Acetaminophen/Oxycodone 325-5 Mg Tab) 1 tab PO Q6H PRN PRN Reason: Pain Last Admin: 05/30/20 08:08 Dose: 1 tab Documented by: Fluticasone/Salmeterol (Fluticasone/Salmeterol 250-50 Mcg Inhalation Powder 14/Diskus) 1 puff INH BID [facility] Last Admin: 05/30/20 08:10 Dose: 1 puff Documented by: Sodium Chloride (Sodium Chloride 0.9% 10 Ml Syringe) 10 ml FLUSH ASDIRECTED PRN PRN Reason: Keep Vein Open Last Admin: 05/30/20 02:32 Dose: 10 ml Documented by: Sodium Chloride (Sodium Chloride 0.9% 2.5 Ml Syringe) 2.5 ml FLUSH ASDIRECTED PRN PRN Reason: Keep Vein Open Last Admin: 05/30/20 02:32 Dose: 2.5 ml Documented by: Tamsulosin HCl (Tamsulosin 0.4 Mg Cap.Er) 0.4 mg PO DAILY [facility] Last Admin: 05/30/20 09:19 Dose: 0.4 mg Documented by: Tiotropium Weldon (Tiotropium Inhaler 18 Mcg Inhalation Powder Cap Kit Of 5) 18 mcg INH DAILY [facility] Last Admin: 05/30/20 09:24 Dose: 1 cap Documented by: Discontinued Medications Dexamethasone (Dexamethasone 4 Mg/Ml 5 Ml Mdv) Confirm Administered Dose 20 mg .ROUTE .STK-MED ONE Stop: 05/30/20 12:12 Fentanyl (Fentanyl 50 Mcg/Ml Sdv) 100 mcg IVPUSH ONETIME ONE Stop: 05/30/20 02:14 Last Admin: 05/30/20 02:28 Dose: 100 mcg Documented by: Fentanyl (Fentanyl 50 Mcg/Ml Sdv) 100 mcg IVPUSH ONETIME ONE Stop: 05/30/20 04:14 Last Admin: 05/30/20 04:21 Dose: 100 mcg Documented by: Fentanyl (Fentanyl 100 Mcg/2 Ml Sdv) Confirm Administered Dose 100 mcg .ROUTE .STK-MED ONE Stop: 05/30/20 12:11 Fentanyl (Fentanyl 100 Mcg/2 Ml Sdv) Confirm Administered Dose 100 mcg .ROUTE .STK-MED ONE Stop: 05/30/20 13:18 Glycopyrrolate (Glycopyrrolate 0.2 Mg/Ml Sdv) Confirm Administered Dose 0.2 mg .ROUTE .STK-MED ONE Stop: 05/30/20 12:12 Sodium Chloride (Normal Saline) 1,000 mls @ 999 mls/hr IV .Bolus ONE Stop: 05/30/20 03:13 Last Admin: 05/30/20 02:26 Dose: 999 mls/hr Documented by: Cefoxitin Sodium 2 gm/ Premix 50 mls @ 100 mls/hr IV ONETIME ONE Stop: 05/30/20 11:07 Last Admin: 05/30/20 10:53 Dose: 100 mls/hr Documented by: Bupivacaine HCl/Epinephrine Bitart (Sensorc Mpf 0.25%-Epi 1:[id number]) Confirm Administered Dose 30 mls @ as directed .ROUTE .STK-MED ONE Stop: 05/30/20 11:19 Acetaminophen (Ofirmev 1000 Mg/100 Ml) Confirm Administered Dose 100 mls @ as directed .ROUTE .STK-MED ONE Stop: 05/30/20 11:53 Iopamidol (Iopamidol 755 Mg/Ml 500 Ml Multipack Bottle) 100 ml IVPUSH ONETIME STA Stop: 05/30/20 11:59 Last Admin: 05/30/20 12:33 Dose: 100 ml Documented by: Ketorolac Tromethamine (Ketorolac 15 Mg/Ml Sdv) 15 mg IVPUSH ONETIME ONE Stop: 05/30/20 02:14 Last Admin: 05/30/20 02:26 Dose: 15 mg Documented by: Lidocaine HCl (Lidocaine 1% 5 Ml Sdv) Confirm Administered Dose 5 ml .ROUTE .STK-MED ONE Stop: 05/30/20 12:11 Lidocaine HCl (Lidocaine 1% 5 Ml Sdv) Confirm Administered Dose 5 ml .ROUTE .STK-MED ONE Stop: 05/30/20 12:12 Lidocaine HCl (Lidocaine 2% Jelly 30 Ml Tube) Confirm Administered Dose 30 ml .R OUTE .STK-MED ONE Stop: 05/30/20 13:24 Morphine Sulfate (Morphine 10 Mg/Ml Syringe) Confirm Administered Dose 10 mg .ROUTE .STK-MED ONE Stop: 05/30/20 12:12 Octyl Cyanoacrylate (Octyl 2-Cyanoacrylate 1 Tube) Confirm Administered Dose 1 applic .ROUTE .STK-MED ONE Stop: 05/30/20 11:19 Ondansetron HCl (Ondansetron 4 Mg/2 Ml Sdv) 4 mg IVPUSH ONETIME ONE Stop: 05/30/20 02:14 Last Admin: 05/30/20 02:25 Dose: 4 mg Documented by: Ondansetron HCl (Ondansetron 4 Mg/2 Ml Sdv) Confirm Administered Dose 4 mg .ROUTE .STK-MED ONE Stop: 05/30/20 12:11 Propofol (Propofol 200 Mg/20 Ml Sdv) Confirm Administered Dose 600 mg .ROUTE .STK-MED ONE Stop: 05/30/20 12:11 Rocuronium Weldon (Rocuronium Weldon 50 Mg/5 Ml Syringe) Confirm Administered Dose 100 mg .ROUTE .STK-MED ONE Stop: 05/30/20 12:12 Sugammadex Sodium (Sugammadex Sodium 200 Mg/2 Ml Vial) Confirm Administered Dose 200 mg .ROUTE .STK-MED ONE Stop: 05/30/20 11:53
[2020-05-30] MEDS ORDERED: Morphine 4 MG/ML Syringe IVPUSH ONE (14:49)
[2020-05-30] MEDS ORDERED: Morphine 10 MG/ML Syringe IV PRN (15:12)
[2020-05-30] MEDS ORDERED: Lactated Ringers 1,000 ML IV SCH (15:15)
[2020-05-30] MEDS ORDERED: Ondansetron 4 MG/2 ML SDV IVPUSH PRN (15:15)
--- NOTE | 2020-05-30 15:25 | PCM.OPNOTE ---
- General Post-Op/Procedure Note Date of Surgery/Procedure: 05/30/20 Operative Procedure(s): lap pastora Findings: gb was thickened wall, mildly, and several spot of gangrenous, large gall stone; [id number] Pre Op Diagnosis: acute cholecystitis Post-Op Diagnosis: Same Anesthesia Technique: General ET Tube Primary Surgeon: Rishabh Singletary Pathology: sent Complications: None Condition: Stable
--- NOTE | 2020-05-30 15:57 | PCM.POSTAN ---
POST ANESTHESIA ASSESSMENT - MENTAL STATUS Mental Status: Alert - VITAL SIGNS Vital Signs: Last Vital Signs Temp 37.4 C 05/30/20 15:20 Pulse 97 05/30/20 15:40 Resp 15 05/30/20 15:40 BP 128/51 L 05/30/20 15:40 Pulse Ox 93 L 05/30/20 15:40 - RESPIRATORY Respiratory Status: Respiratory Rate WNL Free Text/Narrative:: Will place on O2 @ 2L to keep SaO2's 92%. Continue SaO2 thru night. - CARDIOVASCULAR CV Status: Pulse Rate WNL - GASTROINTESTINAL GI Status: No Symptoms - PAIN Pain Score: 0 - POST OP HYDRATION Hydration Status: Adequate & Stable - OBSERVATIONS Free Text/Narrative:: Doing well. Will monitor thru night.
[2020-05-30] MEDS: cefOXitin 1 GM in Premix Bag 1 BAG IV SCH ×2 (16:46→21:09)
[2020-05-31] MEDS: Lactated Ringers 1,000 ML IV SCH (00:37)
[2020-05-31] MEDS: cefOXitin 1 GM in Premix Bag 1 BAG IV SCH (04:12)
[2020-05-31] MEDS: Acetaminophen/oxyCODONE 325-5 MG Tab PO PRN ×2 (04:32→10:28)
--- NOTE | 2020-05-31 07:07 | PCM48HPAN ---
Post Anesthesia Note - EVALUATION WITHIN 48HRS OF ANESTHETIC Vital Signs in Normal Range: Yes Patient Participated in Evaluation: Yes Respiratory Function Stable: Yes (Maintaining SaO2 on room air.) Airway Patent: Yes Cardiovascular Function Stable: Yes Hydration Status Stable: Yes Pain Control Satisfactory: Yes (Currently 1 soreness.) Nausea and Vomiting Control Satisfactory: Yes Mental Status Recovered: Yes Vital Signs: Last Vital Signs Temp 36.2 C 05/31/20 04:34 Pulse 75 05/31/20 04:34 Resp 16 05/31/20 04:34 BP 121/66 05/31/20 04:34 Pulse Ox 92 L 05/31/20 04:34 - COMMENTS/OBSERVATIONS Free Text/Narrative:: Doing well. No problems noted.
[2020-05-31] MEDS ORDERED: Albuterol 8 GM Inhaler INH PRN (07:40)
--- NOTE | 2020-05-31 07:40 | HP ---
DATE OF : 1945 PRIMARY CARE PHYSICIAN: None PCP This is a consult from Dr. Barrera from the ED. CONSULTING QUESTION: Symptomatic gallstone versus cholecystitis. HISTORY OF PRESENT ILLNESS: The patient is a 74-year-old obese gentleman complaining of a 3 day history of gradual onset of abdominal pain. Pain radiated to the back and getting worse, and the patient rates it at 10/10. Seen in the outside emergency room, sent home with pain medication, and the patient does not think it worked and sought help in emergency room at [facility]. Ultrasound was done. Multiple echogenic gallstones within gallbladder. No evidence of cholecystitis with AAA present, which measures 4.4 cm on image, with ultrasound 4.4 cm and recent CAT scan 3.4 cm infrarenal. Pain not managed in the emergency room and the patient was admitted for pain management. The patient denied jaundice, denied dark urine, and denied white stool. ALLERGIES TO MEDICATIONS: Please refer to nursing for detail. FAMILY HISTORY: Noncontributory. PAST MEDICAL HISTORY: Significant for hypertension. Denied diabetes, IA, or CVA. SOCIAL HISTORY: The patient recently quit smoking about 3 days ago and denied chewing tobacco. Denied alcohol use. PAST SURGICAL HISTORY: No abdominal surgery. PHYSICAL EXAMINATION: GENERAL: Obese patient, very polite to the doctor, and smiled at the doctor but complains pain is 10/10. HEENT: Normocephalic and atraumatic. Sclerae anicteric. LUNGS: Clear to auscultation. HEART: Regular rate and rhythm. ABDOMEN: Soft, nondistended. No pulsating tender midline abdominal structure. Very large umbilical hernia, probably around 2.5 cm and bulging skin, nontender though. LABORATORY DATA: Upon consultation, white count is around 13.56, hemoglobin and hematocrit are 12 and 36. Sodium 141, potassium 4.1, and glucose is 132. Total bilirubin is 0.5. AST and ALT are normal at 11 and 42, lipase is normal at 133, and alkaline phosphatase is 87, normal. Urinalysis: The patient has some RBC and some WBC and the patient has ureteral stent but denied any symptoms of UTI. COVID is negative. IMPRESSION: Elevated white count, pain, and gallstone. Await for CAT scan to determine the abdominal aortic aneurysm situation. The patient probably will benefit from gallbladder surgery today. We will see what the CAT scan shows regarding the abdominal aortic aneurysm. FANTA / URMILA /[id number]
[2020-05-31] MEDS: Tamsulosin 0.4 MG Cap.ER PO SCH (08:10)
[2020-05-31] MEDS: Lisinopril 10 MG Tab PO SCH (08:10)
[2020-05-31] MEDS: atorvaSTATin 20 MG Tab PO SCH (08:10)
[2020-05-31] MEDS: Pantoprazole 40 MG in Sodium Chloride 0.9% 10 ML IV SCH (08:11)
[2020-05-31] MEDS: Fluticasone/Salmeterol 250-50 MCG Inhalation Powder 14/Diskus INH SCH (08:13)
--- NOTE | 2020-05-31 08:22 | OR ---
SURGEON: Rishabh Singletary MD DATE OF PROCEDURE: 05/30/2020 PREOPERATIVE DIAGNOSIS: Acute cholecystitis. POSTOPERATIVE DIAGNOSIS: Acute cholecystitis. PROCEDURE PERFORMED: Laparoscopic cholecystectomy. PRIMARY SURGEON: Rishabh Singletary MD COMPLICATIONS: None. FINDINGS: Gallbladder was very distended requiring aspiration before surgery can be proceeded. Wall was mildly thickened and several spot area of gangrenous and turning green, large gallstone. A 14-Burkinan Reilly was inserted without difficulty and adequate urine output. A piece of Surgicel was inserted for hemostasis. DESCRIPTION OF PROCEDURE: Prior to surgery, aspiration had been performed in order to decompress the gallbladder as it is very very distended. At the end of the surgery when the gallbladder has been removed, a piece of Surgicel was inserted for hemostasis and the gallbladder bed was bone dry. The patient was taken to the operating room and placed in the supine position. After the intubation of general endotracheal anesthesia, the patient's abdomen was prepped and draped in the usual sterile fashion. Using Optiview, a 12 mm trocar was placed supraumbilically and then followed with pneumoperitoneum. A 5 mm trocar was placed in the epigastrium and two 5 mm trocars placed in the right upper quadrant. The placement of the last three trocars was done under direct video supervision. Upon gaining entrance to the abdominal cavity, an extensive examination was then performed. The gallbladder was located and identified and retracted to the dome of the liver at the triangle of Calot. The cystic duct was clipped three more times and then using the endoscopic clip, was transected with placement of the endoscopic clip and transection was performed with care, ensuring the posterior prong of the instruments were clearly visualized prior to exercising the procedure. The gallbladder was dissected using electrocautery out of the liver bed and then removed using endoscopic bag through the umbilical site. The gallbladder was removed en bloc and there was no bile spillage and this was then followed with extensive irrigation until the bile was clear from blood and bile. The trocars were then removed under direct video supervision. The 12 mm umbilical site was then closed with deep stitches using 0 Vicryl followed with proximal stitches using 3-0 Vicryl and Dermabond. The other three trocar sites were closed with 3-0 Vicryl followed with approximation of skin with Dermabond. The patient was then awakened and extubated and transferred to the recovery room in hemodynamically stable condition. At the conclusion of the surgery, before closing the abdominal wound, instrument count and sponge count were done and were correct. The patient tolerated the procedure well and there were no intraoperative complications. Dr. Singletary was present through the whole procedure. Just before surgery, a timeout was called. The patient was identified and procedure identified and procedure started. Intraoperative findings as dictated above. Several areas at several aspects of the surgery were discussed. 1. Repeat CAT scan shows the AAA was 3.4 cm, same as 3 weeks ago. 2. A 14-Burkinan Reilly was inserted because of the BPH and without difficulty, so Reilly will stay until tomorrow. 3. A piece of Surgicel was inserted for hemostasis. As always, thank you for the kind referral. FANTA KEARNS /[id number]
--- NOTE | 2020-05-31 09:45 | PCM.SN.2 ---
- Free Text/Narrative Note: dc summary dictated [id number]
[2020-05-31] MEDS: Tiotropium Inhaler 18 MCG Inhalation Powder Cap Kit of 5 INH SCH (10:19)
--- NOTE | 2020-05-31 17:03 | DISCH ---
DATE OF DISCHARGE: 05/31/2020 PRIMARY CARE PHYSICIAN: None PCP PROCEDURE PERFORMED: Laparoscopic cholecystectomy. DIAGNOSIS: Acute cholecystitis. HISTORY: Please refer to detailed admission history and physical for detail. In summary, the patient came to the emergency room with acute abdominal pain, and subsequent workup ultrasound showed stone but no signs or symptoms of cholecystitis. The patient was admitted for pain management. HOSPITAL COURSE: The patient was admitted to my service and continued to complain about pain despite morphine and fentanyl. We repeated his lab work and CAT scan, and CAT scan shows AAA of 3.4 cm with no change from prior reading 3 weeks ago and the white count increased to 14. With increasing pain, also emesis, increasing white count, and no change in AAA, the patient was taken to the operating room, status post laparoscopic cholecystectomy. Intraoperative finding, gallbladder has few spotty area that is gangrenous and at the same time was very distended, requiring a decompression prior to surgery to proceed. Surgery went well, and the patient returned to the floor, started on full liquid diet, and the patient tolerated well and was ambulated, and the next morning, the patient is doing well. The patient was discharged. Upon discharge, the patient's wound was clean, dry, and intact and able to ambulate by self. Pain is much better. The patient was discharged with pain script and has a followup appointment with myself. FANTA KEARNS /[id number]
== END 2020-05-31 12:20 | disposition home or self-care (01) ==
LOC: MW.ED 01:43 → MW.MS 04:31
PROVIDERS: ADMIT Surgery; ATTEND Surgery
DX: K80.12 Calculus of gallbladder with acute and chronic cholecystitis without obstruction (principal); K82.A1 Gangrene of gallbladder in cholecystitis; I71.4 Abdominal aortic aneurysm, without rupture; D72.829 Elevated white blood cell count, unspecified; K42.9 Umbilical hernia without obstruction or gangrene; I10 Essential (primary) hypertension; J44.9 Chronic obstructive pulmonary disease, unspecified; E78.00 Pure hypercholesterolemia, unspecified; F17.210 Nicotine dependence, cigarettes, uncomplicated; E66.9 Obesity, unspecified; Z68.45 Body mass index [BMI] 70 or greater, adult; Z01.812 Encounter for preprocedural laboratory examination; Z20.822 Contact with and (suspected) exposure to COVID-19; Z98.890 Other specified postprocedural states
CPT/HCPCS: 36415; 47562; 51702; 74177; 76705; 80053; 81001; 82150; 83690; 85025; 88304; A9270; C9113; J0131; J0694; J1100; J1885; J2250; J2270; J2405; J2704; J3010; J3490; J7030; J7120; Q9967; U0002; 00790; 96374; 96375; 96376; 99285; 99285-25

== ENCOUNTER 2021-08-28 08:53 | Day surgery (SDC) | payer MEDICARE, OTHER ==
[~2021-08-28 08:53] MED LIST changes: +Ondansetron 4 MG/2 ML SDV ONE; +Propofol 200 MG/20 ML SDV ONE; -Sodium Chloride 0.9% 10 ML SDV IV PRN; -Sodium Chloride 0.9% 10 ML Syringe FLUSH PRN; -Sodium Chloride 0.9% 2.5 ML Syringe FLUSH PRN; -ceFAZolin 2 GM in Premix Bag 1 BAG IV ONE; +fentaNYL 100 MCG/2 ML SDV ONE
[2021-08-28] MEDS ORDERED: Propofol 200 MG/20 ML SDV ONE (11:26)
[2021-08-28] MEDS ORDERED: Lactated Ringers 1,000 ML IV SCH (12:15)
== END 2021-08-28 12:22 | disposition home or self-care (01) ==
LOC: MW.SDS 08:53
PROVIDERS: ATTEND Surgery
DX: D12.0 Benign neoplasm of cecum (principal); D12.3 Benign neoplasm of transverse colon; D12.4 Benign neoplasm of descending colon; D12.5 Benign neoplasm of sigmoid colon; C20 Malignant neoplasm of rectum; J44.9 Chronic obstructive pulmonary disease, unspecified; I10 Essential (primary) hypertension; E66.9 Obesity, unspecified; F17.210 Nicotine dependence, cigarettes, uncomplicated; Z79.899 Other long term (current) drug therapy; Z98.890 Other specified postprocedural states; Z90.49 Acquired absence of other specified parts of digestive tract
CPT/HCPCS: 45385; 88305; 88341; 88342; J2405; J2704; J3010; J7120; 00811; 99100

== ENCOUNTER 2021-09-11 11:42 | Day surgery (SDC) | payer MEDICARE, OTHER ==
[~2021-09-11 11:42] MED LIST changes: -Ondansetron 4 MG/2 ML SDV ONE; -Propofol 200 MG/20 ML SDV ONE; -fentaNYL 100 MCG/2 ML SDV ONE
[2021-09-11] MEDS ORDERED: Propofol 200 MG/20 ML SDV ONE (14:59)
[2021-09-11] MEDS ORDERED: Lidocaine 2% 5 ML SDV ONE (15:00)
[2021-09-11] MEDS ORDERED: Acetaminophen 325 MG Tab PO PRN (15:40)
[2021-09-11] MEDS ORDERED: Ondansetron 4 MG/2 ML SDV IVPUSH PRN (15:40)
[2021-09-11] MEDS ORDERED: Lactated Ringers 1,000 ML IV SCH (15:45)
== END 2021-09-11 16:05 | disposition home or self-care (01) ==
LOC: MW.SDS 11:42
PROVIDERS: ATTEND Surgery
DX: C20 Malignant neoplasm of rectum (principal); I10 Essential (primary) hypertension; J44.9 Chronic obstructive pulmonary disease, unspecified; F17.210 Nicotine dependence, cigarettes, uncomplicated; E66.9 Obesity, unspecified; E78.00 Pure hypercholesterolemia, unspecified; Z98.890 Other specified postprocedural states; Z90.5 Acquired absence of kidney; Z79.899 Other long term (current) drug therapy; Z68.34 Body mass index [BMI] 34.0-34.9, adult
CPT/HCPCS: 45381; J2704; J7120; 00811; 99100

== ENCOUNTER 2021-12-18 08:25 | Day surgery (SDC) | payer MEDICARE, OTHER ==
[2021-12-18] MEDS ORDERED: Lidocaine 1% 20 ML MDV ONE (09:38)
[2021-12-18] MEDS ORDERED: Bupivacaine 0.5% 30 ML SDV ONE (09:38)
[2021-12-18] MEDS ORDERED: Heparin Sodium 100 Units/ML 3 ML Syringe ONE (09:38)
[2021-12-18] MEDS ORDERED: Sodium Chloride 0.9% 20 ML SDV ONE (09:38)
[2021-12-18] MEDS ORDERED: propofoL 100 ML IV ONE (11:30)
[2021-12-18] MEDS ORDERED: ceFAZolin 1 GM Vial IVPUSH ONE (11:30)
[2021-12-18] MEDS ORDERED: Dexamethasone 4 MG/ML 5 ML MDV IVPUSH ONE (11:30)
[2021-12-18] MEDS ORDERED: fentaNYL 100 MCG/2 ML SDV IVPUSH ONE (11:30)
[2021-12-18] MEDS ORDERED: Phenylephrine HCl In 0.9% NaCl 1 MG/10 ML Vial IVPUSH ONE (11:30)
[2021-12-18] MEDS ORDERED: Ketamine 500 mg/10 ML MDV IV ONE (11:30)
[2021-12-18] MEDS ORDERED: Lidocaine 2% 100 MG/5 ML Syringe IV ONE (11:30)
[2021-12-18] MEDS ORDERED: Ondansetron 4 MG/2 ML SDV IVPUSH ONE (11:30)
[2021-12-18] MEDS ORDERED: Lactated Ringers 1,000 ML IV ONE (11:30)
== END 2021-12-18 12:40 ==
LOC: MW.SDS 08:25
PROVIDERS: ATTEND Surgery
DX: C20 Malignant neoplasm of rectum (principal); I10 Essential (primary) hypertension; E78.5 Hyperlipidemia, unspecified; J44.9 Chronic obstructive pulmonary disease, unspecified; N40.0 Benign prostatic hyperplasia without lower urinary tract symptoms; Z98.890 Other specified postprocedural states; Z90.49 Acquired absence of other specified parts of digestive tract; Z79.899 Other long term (current) drug therapy
CPT/HCPCS: 36561; 71045; 76000; C1776; J0690; J1100; J1642; J2405; J2704; J3010; J3490; J7120; 00532; 99100

== ENCOUNTER 2022-02-23 14:32 | Emergency (ER) | payer MEDICARE, OTHER ==
[2022-02-23] MEDS ORDERED: Sodium Chloride 0.9% 1,000 ML IV ONE (15:11)
[2022-02-23 16:02] LABS: CARBON DIOXIDE,CO2 23.9 mmol/L (21.0-32.0); POTASSIUM,K 3.3 mmol/L (3.5-5.1)
[2022-02-23] MEDS ORDERED: cefTRIAXone 1 GM in Sodium Chloride 0.9% 50 ML IV ONE (16:42)
[2022-02-23] MEDS ORDERED: Sodium Chloride 0.9% 500 ML IV SCH (16:45)
[2022-02-23 17:02] LABS: CORONAVIRUS COVID-19 NAA NEGATIVE (NEGATIVE); INFLUENZA A NAA NEGATIVE (NEGATIVE); INFLUENZA B NAA NEGATIVE (NEGATIVE); RESPIRATORY SYNCYTIAL VIR NAA NEGATIVE (NEGATIVE)
== END 2022-02-23 18:05 | disposition home or self-care (01) ==
LOC: MW.ED 14:32
DX: N39.0 Urinary tract infection, site not specified (principal); E86.0 Dehydration; J44.9 Chronic obstructive pulmonary disease, unspecified; E78.00 Pure hypercholesterolemia, unspecified; I10 Essential (primary) hypertension; F17.210 Nicotine dependence, cigarettes, uncomplicated; E66.9 Obesity, unspecified; Z68.34 Body mass index [BMI] 34.0-34.9, adult; Z79.899 Other long term (current) drug therapy; Z20.822 Contact with and (suspected) exposure to COVID-19
CPT/HCPCS: 0241U; 36415; 80053; 81001; 85025; 87086; 87088; 87186; 96361; 96365; 99284; J0696; J7030; J7040